=== PATIENT | male | born 1960 | race Caucasian/White ===

== ENCOUNTER 2017-03-13 21:07 | Observation (INO) | payer BC ==
[2017-03-13] MEDS ORDERED: ASPIRIN 81 MG CHEW PO STA (21:36)
[2017-03-13] MEDS ORDERED: NITROGLYCERIN SL TABS 0.4 MG TAB SUBLINGUAL STA (21:36)
--- NOTE | 2017-03-13 21:41 | ED ---
Chest Pain HPI - General Chief Complaint: Chest Pain Stated Complaint: Chest Pain Time Seen by Provider: 03/13/17 21:21 Source: patient, family, RN notes reviewed Mode of arrival: wheelchair Limitations: no limitations - History of Present Illness Initial Comments: This is a 56-year-old male with a history of Lyme disease fibromyalgia a reversal of a Vinh procedure that was done in October also was admitted recently in January for colitis and diverticulitis who presents with complaints of the onset of chest tightness over last 3 days currently is 8 and 9/10 severity is starts in the mid to left chest radiates to the back and the left arm is had fatigue recently. No cough or phlegm production though he is still a smoker. He denies any fevers chills or sweats he states he has reproducible pain which is different than the pain he currently is complaining that. He also has a history of GERD but this is different pain also. MD Complaint: chest pain - Related Data Home Medications Medication Instructions Recorded Confirmed ALPRAZolam [Xanax] 1 mg PO DAILY 03/13/17 03/13/17 Albuterol Sulfate [Proair Hfa] 1 - 2 puff INHALATION RT-Q6H PRN 03/13/17 [id number] 1 tab PO Q4HR PRN 03/13/17 03/13/17 [Excedrin] Olmesartan [Benicar] 10 mg PO DAILY 03/13/17 03/13/17 Allergies Allergy/AdvReac Type Severity Reaction Status Date / Time metronidazole [From Flagyl] Allergy Unknown Verified 03/13/17 21:38 Review of Systems ROS Statement: Those systems with pertinent positive or pertinent negative responses have been documented in the HPI. ROS Other: All systems not noted in ROS Statement are negative. EKG Findings - EKG Results: EKG: interpreted by ERMD, WNL, sinus rhythm, normal axis, normal QRS, normal ST/ T, no acute changes (EKG shows a normal sinus rhythm of 68 appear of 01 34 QRS duration 90 QT/QTC of 380/44 this is a normal-appearing EKG) Past Medical History Past Medical History: Hyperlipidemia, Hypertension History of Any Multi-Drug Resistant Organisms: None Reported Past Surgical History: Back Surgery, Cholecystectomy Additional Past Surgical History / Comment(s): PLATE TO NECK, LEFT SHOULDER, ELBOW AND WRISTS, HANDS, STOMACH SURGERY Past Psychological History: Anxiety Smoking Status: Current every day smoker Past Alcohol Use History: Daily Past Drug Use History: None Reported General Exam - General Exam Comments Initial Comments: This a well-developed well-nourished awake alert oriented x 3 male Limitations: no limitations General appearance: alert, anxious Head exam: Present: atraumatic, normocephalic, normal inspection Eye exam: Present: normal appearance, PERRL, EOMI. Absent: scleral icterus, conjunctival injection, periorbital swelling ENT exam: Present: normal exam, mucous membranes moist Neck exam: Present: normal inspection. Absent: tenderness, meningismus, lymphadenopathy Respiratory exam: Present: normal lung sounds bilaterally, chest wall tenderness. Absent: respiratory distress, wheezes, rales, rhonchi, stridor Cardiovascular Exam: Present: regular rate, normal rhythm, normal heart sounds. Absent: systolic murmur, diastolic murmur, rubs, gallop, clicks GI/Abdominal exam: Present: soft, normal bowel sounds. Absent: distended, tenderness, guarding, rebound, rigid Extremities exam: Present: normal inspection, full ROM, normal capillary refill. Absent: tenderness, pedal edema, joint swelling, calf tenderness Back exam: Present: normal inspection Neurological exam: Present: alert, oriented X3, CN II-XII intact Psychiatric exam: Present: normal affect, normal mood Skin exam: Present: warm, dry, intact, normal color. Absent: rash Course Vital Signs 03/13/17 03/13/17 03/13/17 21:14 21:50 22:03 Temperature 97.5 F L 98.0 F Pulse Rate 73 68 70 Respiratory 16 16 16 Rate Blood Pressure 161/99 170/101 160/105 O2 Sat by Pulse 97 98 97 Oximetry 03/13/17 03/13/17 03/13/17 22:08 22:13 23:18 Temperature 97.2 F L Pulse Rate 74 70 61 Respiratory 16 16 16 Rate Blood Pressure 140/87 136/84 126/84 O2 Sat by Pulse 97 97 97 Oximetry Chest Pain MDM - MDM Evaluation x-ray shows no evidence of acute findings. I did discuss findings with patient family members. Patient be admitted for evaluation by cardiology. I did discuss this with the covering nurse practitioner for Dr. Crawford. Disposition Clinical Impression: Atypical chest pain, Unstable angina pectoris Disposition: ADMITTED IP TO THIS HOSP Condition: Stable
[2017-03-13 21:58] LABS: Basophils # (A) 0.1 k/uL (0-0.2); Basophils % (A) 1 %; CHCM 35.2; Eosinophils # (A) 0.4 k/uL (0-0.7); Eosinophils % (A) 5 %; HCT 48.6 % (39.0-53.0); HGB 16.9 gm/dL (13.0-17.5); Luc # (Auto) 0.23; Luc % (Auto) 3; Lymphocytes # (A) 2.2 k/uL (1.0-4.8); Lymphocytes % (A) 29 %; MCH 33.6 pg (25.0-35.0); MCHC 34.7 g/dL (31.0-37.0); Mean Platelet Volume 7.1; Monocytes # (A) 0.5 k/uL (0-1.0); Monocytes % (A) 7 %; Neutrophils # (A) 4.2 k/uL (1.3-7.7); Neutrophils % (A) 56 %; RBC 5.01 m/uL (4.30-5.90); RDW 11.9 % (11.5-15.5); WBC 7.6 k/uL (3.8-10.6); WBC (Perox) 7.28
[2017-03-13 22:10] LABS: ALT 34 U/L (21-72); AST 27 U/L (17-59); Alkaline Phosphatase 88 U/L (38-126); Blood Urea Nitrogen 17 mg/dL (9-20); Calcium 10.2 mg/dL (8.4-10.2); Carbon Dioxide 27 mmol/L (22-30); Chloride 105 mmol/L (98-107); Glucose 104 mg/dL (74-99); Magnesium 2.1 mg/dL (1.6-2.3); Non-African American GFR(MDRD) >60 (>60 ml/min/1.73 sqM); Potassium 4.2 mmol/L (3.5-5.1); Total Bilirubin 0.5 mg/dL (0.2-1.3); Total Protein 7.3 g/dL (6.3-8.2)
[2017-03-13 22:13] LABS: Anion Gap 8 mmol/L; Sodium 140 mmol/L (137-145)
[2017-03-13 22:15] LABS: Partial Thromboplastin Time 24.8 sec (22.0-30.0); Prothrombin Time 10.1 sec (9.0-12.0)
[2017-03-13 22:19] LABS: Creatine Kinase 82 U/L (55-170)
[2017-03-13 22:34] LABS: Troponin I <0.012 ng/mL (0.000-0.034)
--- NOTE | 2017-03-13 22:42 | XR ---
EXAM: XR Chest, 2 Views CLINICAL HISTORY: Reason: Chest Pain TECHNIQUE: Frontal and lateral views of the chest. COMPARISON: No relevant prior studies available. FINDINGS: Lungs: Unremarkable. No consolidation. Pleural space: No pleural effusion. No pneumothorax. Heart: Unremarkable. No cardiomegaly. Mediastinum: Unremarkable. Bones/joints: Partially imaged lower cervical spine fusion hardware. IMPRESSION: No acute cardiopulmonary disease.
[2017-03-14] MEDS ORDERED: HEPARIN SODIUM,PORCINE 5,000 UNIT/ML 1 ML VIAL IV ONE
[2017-03-14] MEDS ORDERED: HEPARIN SODIUM,PORCINE/D5W PMX 25,000 UNIT in DEXTROSE/WATER 1 500ML.BAG IV SCH
[2017-03-14] MEDS ORDERED: ALBUTEROL NEBULIZED 2.5 MG/3 ML INHALATION PRN (00:02)
[2017-03-14] MEDS: HYDROmorphone 1 MG/ML 1 ML SYRINGE IVP PRN ×7 (00:32→20:55)
[2017-03-14] MEDS: NITROGLYCERIN OINT 1 INCH/GM PACKET TOPICAL SCH ×2 (00:38→06:09)
[2017-03-14 01:12] VITALS: BMI 25.2
[2017-03-14] MEDS: SODIUM CHLORIDE 0.9% 1,000 ML IV SCH (01:28)
[2017-03-14] MEDS ORDERED: HEPARIN SODIUM,PORCINE 5,000 UNIT/ML 1 ML VIAL IV PRN (01:35)
[2017-03-14] MEDS: NITROGLYCERIN SL TABS 0.4 MG TAB SUBLINGUAL PRN ×3 (01:49→02:00)
[2017-03-14] MEDS ORDERED: RX INFO: IV CONTRAST WAS GIVEN 1 EACH MISC MISCELLANE PRN (02:56)
--- NOTE | 2017-03-14 04:39 | CT ---
EXAM: CT Angiography Chest Without and With Intravenous Contrast CT Angiography Abdomen Without and With Intravenous Contrast CLINICAL HISTORY: Reason: CHEST PAIN TECHNIQUE: Axial computed tomographic angiography images of the chest and abdomen without and with intravenous contrast using CT angiography protocol. Coronal and sagittal reformats were obtained. CTDI is 55.50 mGy and DLP is 820.40 MGy-cm This CT exam was performed using one or more of the following dose reduction techniques: automated exposure control, adjustment of the mA and/or kV according to patient size, and/or use of iterative reconstruction technique. MIP reconstructed images were created and reviewed. COMPARISON: No relevant prior studies available. FINDINGS: VASCULATURE: Aorta: No acute findings. No aortic aneurysm. No dissection. Pulmonary arteries: Unremarkable as visualized. No pulmonary embolism is identified. Great vessels of aortic arch: No acute findings. No dissection. No occlusion or significant stenosis. Celiac trunk and mesenteric arteries: No acute findings. Mild atherosclerotic stenosis at the origin of the SMA. Renal arteries: No acute findings. No occlusion or significant stenosis. CHEST: Lungs: Unremarkable. No mass. No consolidation. Pleural space: Unremarkable. No significant effusion. No pneumothorax. Heart: Unremarkable. No cardiomegaly. No significant pericardial effusion. ABDOMEN: Liver: Unremarkable. No mass. Gallbladder and bile ducts: Gallbladder is surgically absent. No ductal dilation. Pancreas: Unremarkable. No ductal dilation. No mass. Spleen: Unremarkable. No splenomegaly. Adrenals: Unremarkable. No mass. Kidneys and ureters: No obstructing stones. No hydronephrosis. No solid mass. Stomach and bowel: Unremarkable. No obstruction. No mucosal thickening. Intraperitoneal space: Unremarkable. No significant fluid collection. No free air. CHEST and ABDOMEN: Bones/joints: No acute fracture. Lymph nodes: Unremarkable. No enlarged lymph nodes. IMPRESSION: No acute findings. No aortic aneurysm or dissection.
[2017-03-14 05:05] LABS: Creatine Kinase 58 U/L (55-170)
[2017-03-14 05:18] LABS: Creatine Kinase MB 1.7 ng/mL (0.0-2.4); Troponin I <0.012 ng/mL (0.000-0.034)
--- NOTE | 2017-03-14 08:29 | P.CRDCN ---
History of Present Illness Consult date: 03/14/17 Requesting physician: Melissa Crawford Consult reason: chest pain Chief complaint: Chest pain History of present illness: This is a 56-year-old gentleman with history of hypertension, hyperlipidemia, nicotine dependence, family history of premature coronary artery disease, GERD, prior Vinh procedure with reversal approximately 4-5 months ago, he presents to the hospital with symptoms of chest pressure which she describes as a heaviness that radiates across his chest and down his left arm. He also feels some discomfort in the scapular area. He states that the symptoms started 3 days ago and have persisted since then. He does get mildly flushed with the symptoms mild shortness of breath. Patient states that the pain is much different than what he usually gets from his acid reflux. He was given sublingual nitroglycerin in the emergency room with no relief of symptoms. The pressure on arrival to the emergency room 161/99, pressure this morning 120/70 with a heart rate in the 70s. EKG shows a normal sinus rhythm with no acute changes. VC is normal. Troponins negative 2. Magnesium level 2.1, potassium 4.2. X- ray does not reveal any acute cardiopulmonary process. CTA of the chest and abdomen do not reveal any acute findings, no aortic aneurysm or dissection. Adding to the patient, he has recently moved to this area from [place], he has had at least 4 heart cath in the past which according to him have been reported to be normal. Past Medical History Past Medical History: Asthma, COPD, Fibromyalgia, GERD/Reflux, Hyperlipidemia, Hypertension, Osteoarthritis (OA), Pneumonia Additional Past Medical History / Comment(s): lyme disease History of Any Multi-Drug Resistant Organisms: None Reported Past Surgical History: Back Surgery, Cholecystectomy Additional Past Surgical History / Comment(s): PLATE TO NECK, LEFT SHOULDER, ELBOW AND WRISTS, HANDS, STOMACH SURGERY Past Anesthesia/Blood Transfusion Reactions: No Reported Reaction Past Psychological History: Anxiety Smoking Status: Current every day smoker Past Alcohol Use History: Daily Past Drug Use History: None Reported - Past Family History Mother Family Medical History: Osteoarthritis (OA) Father Family Medical History: Coronary Artery Disease (CAD), Diabetes Mellitus, Hypertension Son(s) Family Medical History: No Reported History Medications and Allergies Home Medications Medication Instructions Recorded Confirmed Type ALPRAZolam [Xanax] 1 mg PO DAILY 03/13/17 03/13/17 History Albuterol Sulfate [Proair Hfa] 1 - 2 puff INHALATION RT-Q6H PRN 03/13/17 History [id number] 1 tab PO Q4HR PRN 03/13/17 03/13/17 History [Excedrin] Losartan Potassium [Losartan 25 mg PO DAILY 03/14/17 03/14/17 History Potassium] Allergies Allergy/AdvReac Type Severity Reaction Status Date / Time metronidazole [From Flagyl] Allergy Unknown Verified 03/13/17 21:38 Physical Exam Vitals: Vital Signs Temp Pulse Pulse Resp BP BP Pulse Ox 03/14/17 04:00 74 16 120/72 96 03/14/17 01:00 96.8 F L 72 16 145/94 96 03/14/17 00:41 77 16 160/108 98 Intake and Output 03/13/17 03/14/17 03/14/17 22:59 06:59 14:59 Intake Total 60 Balance 60 Intake: IV 60 Sodium Chloride 0.9% 1, 60 000 ml @ 20 mls/hr IV . Q24H [facility] Rx#:[id number] Other: Weight 79.6 kg PHYSICAL EXAMINATION: HEENT: Head is atraumatic, normocephalic. Pupils equal, round. Neck is supple. There is no elevated jugular venous pressure. HEART EXAMINATION: Heart S1, S2 normal. No murmur or gallop heard. CHEST EXAMINATION: Lungs are clear to auscultation and precussion. No chest wall tenderness is noted on palpation or with deep breathing. ABDOMEN: Soft, nontender. Bowel sounds are heard. No organomegaly noted. EXTREMITIES: 2+ peripheral pulses with no evidence of peripheral edema and no calf tenderness noted. NEUROLOGIC patient is awake, alert and oriented -3. . Results 03/13/17 21:40 03/13/17 21:40 Cardiac Enzymes 03/14/17 Range/Units 04:09 CK-MB (CK-2) 1.7 (0.0-2.4) ng/mL Troponin I <0.012 (0.000-0.034) ng/mL Coagulation 03/14/17 Range/Units 06:59 APTT 40.1 H (22.0-30.0) sec Current Medications Generic Name Dose Route Start Last Admin Trade Name Freq PRN Reason Stop Dose Admin Hydrocodone Bitart/Acetaminophen 1 each 03/14/17 06:49 [place] 5-325 PO Q4HR PRN MODERATE Pain Albuterol Sulfate 2.5 mg 03/14/17 00:02 Ventolin Nebulized INHALATION RT-Q6H PRN Shortness Of Breath Alprazolam 1 mg 03/14/17 09:00 Xanax PO DAILY [facility] Aspirin 325 mg 03/15/17 09:00 Aspirin PO DAILY [facility] Heparin Sodium (Porcine) 0 unit 03/14/17 01:35 Heparin IV PER PROTOCOL PRN Low PTT Protocol Hydromorphone HCl 1 mg 03/14/17 00:03 03/14/17 06:09 Dilaudid IVP 1 mg Q3HR PRN Administration SEVERE Pain Heparin Sodium/Dextrose 25,000 500 mls @ 19.15 mls/hr 03/14/17 00:00 00:32 unit/ IV Solution IV 12 units/kg/hr .Q24H JESSICA 19.15 mls/hr Protocol Administration 12 UNITS/KG/HR Sodium Chloride 1,000 mls @ 20 mls/hr 03/14/17 00:00 03/14/17 01:28 Saline 0.9% IV 20 mls/hr .Q24H JESSICA Administration Losartan Potassium 50 mg 03/14/17 09:00 Cozaar PO DAILY [facility] Miscellaneous Information 1 each 03/14/17 02:56 Rx Info: Iv Contrast Was Given MISCELLANE 03/16/17 02:57 DAILY PRN Per Protocol Nicotine 1 patch 03/14/17 09:00 Habitrol 14mg/24hr Patch TRANSDERM DAILY [facility] Nitroglycerin 1 inch 03/14/17 00:00 03/14/17 06:09 Nitro-Bid Oint TOPICAL 1 inch Q6HR JESSICA Administration Nitroglycerin 0.4 mg 03/14/17 00:00 03/14/17 02:00 Nitrostat SUBLINGUAL 0.4 mg Q5M PRN Administration Chest Pain Intake and Output 03/13/17 03/14/17 03/14/17 22:59 06:59 14:59 Intake Total 60 Balance 60 Intake: IV 60 Sodium Chloride 0.9% 1, 60 000 ml @ 20 mls/hr IV . Q24H [facility] Rx#:[id number] Other: Weight 79.6 kg EKG Interpretations (text) EKG shows normal sinus rhythm with no acute changes. Assessment and Plan Plan: Assessment and plan #1 chest pain, atypical for acute coronary syndrome. Troponins negative 2. EKG shows normal sinus rhythm with no acute changes. #2 accelerated hypertension #3 history of hypertension #4 hyperlipidemia #5 nicotine dependence #6 family history of premature coronary artery disease #7 history of GERD #8 history of a Vinh procedure with reversal Plan We will obtain an echocardiogram with Doppler study. We will also schedule the patient to undergo regular stress test today. If the echo and stress test are normal, patient may be able to be discharged from cardiology's perspective. We will discontinue the patient's Nitropaste and IV heparin. Further recommendations to follow. DNP note has been reviewed, I agree with a documented findings and plan of care. Patient was seen and examined.
[2017-03-14] MEDS: LOSARTAN 50 MG TAB PO SCH (09:20)
[2017-03-14 09:29] LABS: Creatine Kinase 55 U/L (55-170)
[2017-03-14 09:40] LABS: Troponin I <0.012 ng/mL (0.000-0.034)
[2017-03-14] MEDS: HYDROcodone/APAP 5-325MG 1 EACH TAB PO PRN (10:50)
[2017-03-14] MEDS: ALPRAZolam 0.5 MG TAB PO SCH (10:51)
[2017-03-14] MEDS: NICOTINE 14MG/24HR PATCH TRANSDERM SCH (10:51)
--- NOTE | 2017-03-14 11:08 | ECHOF ---
Referral Reason:Chest pain MEASUREMENTS -------- HEIGHT: 177.8 cm WEIGHT: 79.4 kg BP: 120/72 RVIDd: 3.2 cm (< 3.3) IVSd: 1.2 cm (0.6 - 1.1) LVIDd: 4.5 cm (3.9 - 5.3) LVPWd: 1.0 cm (0.6 - 1.1) IVSs: 1.7 cm LVIDs: 2.9 cm LVPWs: 1.6 cm LA Diam: 3.7 cm (2.7 - 3.8) LAESV Index (A-L): 25.73 ml/m Ao Diam: 3.7 cm (2.0 - 3.7) AV Cusp: 2.5 cm (1.5 - 2.6) MV EXCURSION: 20.347 mm (> 18.000) MV EF SLOPE: 137 mm/s (70 - 150) EPSS: 0.3 cm MV E Jordan: 0.76 m/s MV DecT: 216 ms MV A Jordan: 0.62 m/s MV E/A Ratio: 1.24 AR PHT: 1657 ms RAP: 5.00 mmHg RVSP: 27.77 mmHg FINDINGS -------- Sinus rhythm. This was a technically good study. The left ventricular size is normal. There is borderline concentric left ventricular hypertrophy. Overall left ventricular systolic function is normal with, an EF between 60 - 65 %. The right ventricle is normal in size and function. Normal LA size by volume 22+/-6 ml/m2. The right atrium is normal in size. The aortic valve is trileaflet and appears structurally normal. There is mild aortic regurgitation. The mitral valve is normal. Mild tricuspid regurgitation present. Right ventricular systolic pressure is normal at < 35 mmHg. Trace/mild (physiologic) pulmonic regurgitation. The aortic root, ascending aorta and aortic arch are normal. Normal inferior vena cava with normal inspiratory collapse consistent with estimated right atrial pressure of 5 mmHg. The pericardium is normal. CONCLUSIONS -------- 1. Sinus rhythm. 2. There is mild aortic regurgitation. 3. The mitral valve is normal. 4. Mild tricuspid regurgitation present. 5. Right ventricular systolic pressure is normal at < 35 mmHg. 6. Trace/mild (physiologic) pulmonic regurgitation. 7. The aortic root, ascending aorta and aortic arch are normal. 8. Normal inferior vena cava with normal inspiratory collapse consistent with estimated right atrial pressure of 5 mmHg. 9. The pericardium is normal. 10. This was a technically good study. 11. The left ventricular size is normal. 12. There is borderline concentric left ventricular hypertrophy. 13. Overall left ventricular systolic function is normal with, an EF between 60 - 65 %. 14. The right ventricle is normal in size and function. 15. Normal LA size by volume 22+/-6 ml/m2. 16. The right atrium is normal in size. 17. The aortic valve is trileaflet and appears structurally normal. CHAIN HOOKER: Kathy Hernandez RDCS
--- NOTE | 2017-03-14 11:25 | EST ---
DATE OF SERVICE: 03/14/2017 AGE: 56Y SEX: M HT: 70" WT: 176 lbs. Protocol Bonilla: X Other: Stress Stage: 3 Dur. of Exercise: 10:07 *Heart Rate Blood Pressure *Rest: 58 Rest: 129/88 * *Max. Achieved: 131 Maximum BP: 142/85 85% PMHR: 139 100% PMHR: 163 *METS: 11.3 INDICATIONS: - MEDICATIONS: - Baseline EKG revealed normal sinus rhythm without significant ST-T changes. Patient walked on the standard Bonilla protocol for 10 minutes 7 seconds, achieved a maximal heart rate of 131 beats per minute, which is less than 85% of predicted maximal. He developed fatigue and shortness of breath, but did not achieve more than 85% of predicted of maximum. At the above-mentioned stress level, patient did not have any angina but there was a 0.[address] segment depression raising the possibility of ischemia without subjective symptoms of angina. FINAL IMPRESSION: 1. By EKG criteria, this is an inconclusive stress test because of inadequate chronotropic response but there were borderline EKG changes raising the possibility of ischemia without subjective symptoms of angina. Patient walked for over 10 minutes. 2. If ischemia is strongly suspected, we should consider a pharmacological stress test because patient was unable to achieve a heart rate response beyond 80% of his predicted maximum.
[2017-03-14] MEDS ORDERED: ONDANSETRON 4 MG/2 ML VIAL IVP STA (11:51)
[2017-03-14] MEDS ORDERED: ASPIRIN-ACET-CAFF 250-250-65MG 1 EACH TAB PO PRN (15:53)
[2017-03-14] MEDS ORDERED: SODIUM CHLORIDE 0.9% 1,000 ML in EMPTY BAG 1 BAG IV ONE (16:07)
[2017-03-14] MEDS ORDERED: NITROGLYCERIN SL TABS 0.4 MG TAB SUBLINGUAL PRN (16:07)
[2017-03-14] MEDS ORDERED: ALPRAZolam 0.25 MG TAB PO PRN (16:07)
[2017-03-14 16:22] LABS: Amylase 57 U/L (30-110)
[2017-03-14 17:07] LABS: C Reactive Protein <5.0 mg/L (<10.0)
[2017-03-14 17:37] LABS: Appearance,Urine Clear (Clear); Bilirubin,Urine Negative (Negative); Glucose,Urine (UA) Negative (Negative); Ketones,Urine Negative (Negative); Leukocyte Esterase,Urine Negative (Negative); Nitrite,Urine Negative (Negative); PH, Urine 6.5 (5.0-8.0); Protein,Urine Negative (Negative); Specific Gravity,Urine 1.002 (1.001-1.035); UA Billing (MACRO vs. MICRO) CHEM; Urobilinogen,Urine <2.0 mg/dL (<2.0)
[2017-03-14] MEDS: PANTOPRAZOLE 40 MG/10 ML VIAL IVP SCH (20:56)
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
[2017-03-14] MEDS: ALPRAZolam 0.5 MG TAB PO PRN (22:19)
[2017-03-15] MEDS: SODIUM CHLORIDE 0.9% 1,000 ML IV SCH ×2 (00:21→23:35)
[2017-03-15] MEDS: HYDROmorphone 1 MG/ML 1 ML SYRINGE IVP PRN ×7 (00:28→21:39)
[2017-03-15] MEDS: ALPRAZolam 0.5 MG TAB PO SCH (06:24)
[2017-03-15] MEDS: LOSARTAN 50 MG TAB PO SCH (06:24)
[2017-03-15] MEDS: ASPIRIN 325 MG TAB PO SCH (06:24)
[2017-03-15 06:43] LABS: Basophils # (A) 0.1 k/uL (0-0.2); Basophils % (A) 1 %; CH 33.9; CHCM 33.9; Eosinophils # (A) 0.3 k/uL (0-0.7); Eosinophils % (A) 3 %; HDW 2.35; HGB 15.6 gm/dL (13.0-17.5); Luc # (Auto) 0.26; Luc % (Auto) 2; Lymphocytes # (A) 2.4 k/uL (1.0-4.8); Lymphocytes % (A) 22 %; MCH 32.7 pg (25.0-35.0); MCHC 32.6 g/dL (31.0-37.0); MCV 100.4 fL (80.0-100.0); Monocytes # (A) 0.7 k/uL (0-1.0); Monocytes % (A) 6 %; Neutrophils # (A) 7.5 k/uL (1.3-7.7); Neutrophils % (A) 67 %; RBC 4.79 m/uL (4.30-5.90); RDW 12.1 % (11.5-15.5); WBC 11.2 k/uL (3.8-10.6); WBC (Perox) 11.05
[2017-03-15 06:49] LABS: Anion Gap 8 mmol/L; Blood Urea Nitrogen 11 mg/dL (9-20); Calcium 9.7 mg/dL (8.4-10.2); Carbon Dioxide 29 mmol/L (22-30); Chloride 105 mmol/L (98-107); Cholesterol 226 mg/dL (<200); Glucose 106 mg/dL (74-99); HDL Cholesterol 58 mg/dL (40-60); Non-African American GFR(MDRD) >60 (>60 ml/min/1.73 sqM); Potassium 4.4 mmol/L (3.5-5.1); Sodium 142 mmol/L (137-145); Triglycerides 347 mg/dL (<150)
[2017-03-15] MEDS: NICOTINE 14MG/24HR PATCH TRANSDERM SCH (08:21)
[2017-03-15] MEDS: PANTOPRAZOLE 40 MG/10 ML VIAL IVP SCH (08:21)
[2017-03-15] MEDS: MULTIVITAMINS, THERA 1 EACH TAB PO SCH (11:25)
[2017-03-15] MEDS: PANTOPRAZOLE 40 MG TABLET PO SCH (17:21)
--- NOTE | 2017-03-15 17:55 | PN ---
DATE OF SERVICE: 03/15/2017 This 56-year-old gentleman, admitted with chest pain, is being closely monitored. Cardiac catheterization and stenting is scheduled by Cardiology. No fever. No cough. On exam, alert and oriented x3. Pulse 67, blood pressure 149/86, respiratory rate 16, temperature 97 degrees. Pulse ox 97% on room air. HEENT: Conjunctivae normal. NECK: No jugular venous distention. CARDIOVASCULAR SYSTEM: S1, S2 muffled. RESPIRATORY SYSTEM: Breath sounds diminished at the bases. No crackles. ABDOMEN: Soft, nontender. No mass palpable. LEGS: No edema. No swelling. NERVOUS SYSTEM: Higher functions as mentioned earlier. Moves all 4 limbs. No focal motor or sensory deficit. LYMPHATICS: No lymph node palpable in neck, axillae or groin. SKIN: No ulcer, rash, bleeding. LABS: WBC 11.2. Triglycerides 347. Cholesterol 226. ASSESSMENT: 1. Chest pain for evaluation. Rule out coronary artery disease. 2. Hyperlipidemia. 3. Hearing deficit on the left side. 4. Increased random blood sugar. 5. History of chronic intermittent asthma. 6. History of chronic obstructive pulmonary disease. 7. History of fibromyalgia. 8. History of gastroesophageal reflux disease. 9. Hypertension, essential. 10. History of hyperlipidemia. 11. History of degenerative joint disease. 12. History of pneumonia. 13. History of chronic lung disease. 14. History of back surgery. 15. Cholecystectomy. 16. Anxiety not otherwise specified. 17. History of nicotine dependence. 18. FULL CODE. RECOMMENDATIONS AND DISCUSSION: In this 56-year-old gentleman who presented with multiple complex medical issues, we will monitor the patient closely, continue the current medication, continue with symptomatic treatment. Otherwise, cardiac catheterization. Continue the rest of the medications. I also recommend a small dose of Lipitor. Further recommendations to follow.
--- NOTE | 2017-03-15 18:56 | PN ---
DATE OF SERVICE: 03/15/2017 This 56-year-old gentleman admitted with chest pain is being closely monitored at this time. Cardiology is planning cardiac catheterization. No fever. No cough. On exam, alert and oriented x3. Pulse 69, blood pressure 143/86, respirations 16, temperature 97 degrees, pulse ox 94% on room air. HEENT: Conjunctivae normal. NECK: No jugular venous distention. CARDIOVASCULAR: S1 and S2. RESPIRATORY: Breath sounds diminished at the bases. No rhonchi, no crackles. ABDOMEN: Soft, nontender. LEGS: No edema, no swelling. NERVOUS SYSTEM: No focal deficits. LABS: WBC 11.2, MCV 100.4, triglycerides 347, cholesterol is 226. ASSESSMENT: 1. Chest pain rule out coronary artery disease. 2. Hearing deficit on the left side. 3. Hypertriglyceridemia. 4. Hyperlipidemia. 5. Increased random blood sugar. 6. Chronic intermittent asthma. 7. History of chronic obstructive pulmonary disease. 8. History of fibromyalgia. 9. History of gastroesophageal reflux disease. 10. Hypertension, essential. 11. History of hyperlipidemia. 12. History of degenerative joint disease. 13. History of pneumonia. 14. History of chronic Lyme disease. 15. History of back surgery. 16. History of cholecystectomy. 17. History of anxiety, not otherwise specified. 18. History of nicotine dependence. 19. FULL CODE. RECOMMENDATIONS AND DISCUSSION: I recommend to continue the current medications, continue monitoring and symptomatic treatment. Otherwise cardiac catheterization and add small dose of Lipitor and continue to monitor. Guarded prognosis because of multiple complex medical issues. Further recommendations to follow.
[2017-03-15] MEDS ORDERED: ATORVASTATIN 10 MG TAB PO SCH ×3 (21:00)
[2017-03-15] MEDS: ALPRAZolam 0.5 MG TAB PO PRN (21:38)
[2017-03-15] MEDS: HYDROcodone/APAP 5-325MG 1 EACH TAB PO PRN (23:32)
[2017-03-16] MEDS: ASPIRIN 325 MG TAB PO SCH (06:03)
[2017-03-16] MEDS: LOSARTAN 50 MG TAB PO SCH (06:04)
[2017-03-16] MEDS: NICOTINE 14MG/24HR PATCH TRANSDERM SCH (06:04)
[2017-03-16] MEDS: ALPRAZolam 0.5 MG TAB PO SCH (06:04)
[2017-03-16] MEDS: PANTOPRAZOLE 40 MG TABLET PO SCH (06:04)
[2017-03-16] MEDS: HYDROmorphone 1 MG/ML 1 ML SYRINGE IVP PRN ×3 (06:11→13:08)
[2017-03-16 07:57] VITALS: RESP 16
[2017-03-16] MEDS ORDERED: LIDOCAINE 2% INJ 20 MG/ML (20 ML MDV) ONE (08:40)
[2017-03-16] MEDS ORDERED: IV FLUID CONTINUATION 1,000 ML IV ONE (08:45)
[2017-03-16] MEDS ORDERED: VERAPAMIL 2.5 MG/ML 2 ML AMP ONE (08:54)
[2017-03-16] MEDS ORDERED: MIDAZOLAM 2 MG/2 ML VIAL ONE (09:08)
[2017-03-16] MEDS ORDERED: MIDAZOLAM 2 MG/2 ML VIAL IV ONE (09:23)
[2017-03-16] MEDS ORDERED: LIDOCAINE 2% INJ 20 MG/ML SQ ONE (09:24)
[2017-03-16] MEDS ORDERED: VERAPAMIL SYRINGE (5 MG/10 ML) INTRAARTER ONE ×2 (09:25→09:38)
[2017-03-16] MEDS ORDERED: HEPARIN SODIUM 1,000 UNIT/ML VIAL ONE (09:26)
[2017-03-16] MEDS ORDERED: IOHEXOL 350 MG/ML 125ML BOTTLE INJ ONE (09:39)
[2017-03-16] MEDS ORDERED: RX INFO: IV CONTRAST WAS GIVEN 1 EACH MISC MISCELLANE PRN (09:44)
[2017-03-16] MEDS ORDERED: SODIUM CHLORIDE 0.9% 1,000 ML IV SCH (09:45)
[2017-03-16 11:02] LABS: Basophils # (A) 0.1 k/uL (0-0.2); Basophils % (A) 1 %; CH 33.5; CHCM 33.6; Eosinophils # (A) 0.4 k/uL (0-0.7); Eosinophils % (A) 6 %; HCT 43.9 % (39.0-53.0); HDW 2.29; HGB 14.5 gm/dL (13.0-17.5); Luc # (Auto) 0.14; Luc % (Auto) 2; Lymphocytes # (A) 1.9 k/uL (1.0-4.8); Lymphocytes % (A) 30 %; Mean Platelet Volume 7.1; Monocytes # (A) 0.4 k/uL (0-1.0); Monocytes % (A) 6 %; Neutrophils # (A) 3.4 k/uL (1.3-7.7); Neutrophils % (A) 54 %; RBC 4.39 m/uL (4.30-5.90); RDW 12.2 % (11.5-15.5); WBC 6.3 k/uL (3.8-10.6)
[2017-03-16 11:22] LABS: Anion Gap 7 mmol/L; Blood Urea Nitrogen 10 mg/dL (9-20); Carbon Dioxide 25 mmol/L (22-30); Chloride 108 mmol/L (98-107); Glucose 94 mg/dL (74-99); Non-African American GFR(MDRD) >60 (>60 ml/min/1.73 sqM); Potassium 4.3 mmol/L (3.5-5.1); Sodium 140 mmol/L (137-145)
[2017-03-16] MEDS: MULTIVITAMINS, THERA 1 EACH TAB PO SCH (11:28)
[2017-03-16] MEDS: HYDROcodone/APAP 5-325MG 1 EACH TAB PO PRN (14:16)
[2017-03-16 15:09] VITALS: BP 135/83; PULSE 67; TEMP 96.8
--- NOTE | 2017-03-16 18:08 | CC ---
DATE OF SERVICE: 03/16/2017 PERFORMING PHYSICIAN: Wilber Bobby, [employer]. PROCEDURE PERFORMED: 1. Selective right and left coronary angiogram. 2. Left heart catheterization. 3. Left ventriculography. INDICATION: This is a pleasant 56-year-old gentleman who was admitted to the hospital with chest discomfort and underwent myocardial perfusion imaging stress test. The decision was made toward heart catheterization to rule out any severe underlying CAD. APPROACH: Right radial artery. COMPLICATIONS: None. LEVEL OF SEDATION: Moderate with a sedation length of 17 minutes. PROCEDURE DESCRIPTION: After obtaining informed consent, the patient was brought to the cardiac cathode ray tube assembler. Right radial artery was cannulated using micropuncture technique. The micropuncture wire passed easily, then I placed 6 [place] sheath in the right radial artery. Subsequently I gave the patient 2 mg of verapamil IA and 3000 units of heparin IV. After that, I did selective right and left coronary angiogram using JR4 and JL 3.5 catheters. Then I did left heart catheterization and LV gram using a 6 [place] pigtail catheter. The procedure was completed without any complication. SELECTIVE CORONARY ANGIOGRAM: 1. The right coronary artery is a large-caliber vessel. It is a dominant vessel and it is a tortuous vessel. It has mild disease only. It bifurcates into PDA and PLV branches; both are angiographically normal. 2. The left main is angiographically normal. It bifurcates into the left circumflex and left anterior descending artery. 3. The left circumflex is a large-caliber vessel and it is a nondominant vessel. It appeared to have mild disease only in the proximal portion. The mid and distal portions are normal. 4. Left anterior descending artery: The proximal LAD appeared to be angiographically normal and gives rises into a large diagonal branch, which seems to have mild disease only. The mid LAD has disease, appeared to be in the range of 20% to 30%. The LAD distally is angiographically normal. HEMODYNAMICS: The left ventricular end-diastolic pressure was about 12 mmHg and no gradient was identified across the aortic valve. Left ventriculography was performed in the SABA projection and using a power injection. The left ventricular systolic function is normal with EF of 55% to 60%. CONCLUSION: 1. Mild nonobstructive coronary artery disease. 2. Normal left ventricular end-diastolic pressure. 3. Normal left ventricular systolic function.
--- NOTE | 2017-03-17 10:06 | DS ---
DATE OF ADMISSION: 03/14/2017 DATE OF DISCHARGE: 03/16/2017 DATE OF SERVICE: 03/16/2017 FINAL DIAGNOSES: 1. Chest pain, possibly musculoskeletal, myocardial infarction ruled out. 2. Hearing deficit on the left side. 3. Status post cardiac catheterization with no significant coronary artery disease, final report pending. 4. Hepatitis C. 5. Hyperlipidemia. 6. Increased random blood sugar. 7. Chronic intermittent asthma. 8. History of chronic obstructive pulmonary disease. 9. History of fibromyalgia. 10. History of gastroesophageal reflux disease. 11. Hypertension, essential. 12. History of hyperlipidemia. 13. History of degenerative joint disease. 14. History of pneumonia. 15. History of chronic Lyme disease. 16. History of back surgery. 17. History of cholecystectomy. 18. Anxiety, not otherwise specified. 19. History of nicotine dependence. 20. FULL CODE. DISCHARGE DISPOSITION: The patient will be discharged in a stable condition with guarded prognosis. HISTORY OF PRESENT ILLNESS: This is a 56-year-old gentleman with a past medical history of multiple medical problems was admitted with chest pain, myocardial infarction ruled out. Patient had cardiac catheterization which did not show any acute coronary abnormality. The patient was treated symptomatically. On exam, vitals are stable. CARDIOVASCULAR SYSTEM: S1, S2, muffled. ABDOMEN: Soft. NERVOUS SYSTEM: No focal deficits. Patient also had a thoracic aortic CT which showed no acute findings and no acute aneurysms. Patient is being discharged. DISCHARGE ADVICE: 1. Diet is cardiac. 2. Activity limited until followup. 3. Follow up with Dr. Shahid in 2 to 3 days. 4. Follow up with Dr. Bobby. 5. Follow up with Dr. Will for neurology work-up. 6. Follow up with Dr. Marte for pain management. 7. Follow up with the neuropsychiatrist. The following medications recommended from the medical standpoint: 1. Xanax 1 mg p.o. daily. 2. ProAir HFA 1 to 2 puffs q.6 p.r.n. 3. Yuxwdfi-bdosbakoykdmg-ulngenxu q.4 p.r.n. 4. Lipitor 10 mg q.h.s. 5. [place] 5 mg q.6 p.r.n. 6. Losartan 25 mg p.o. daily. MTDD
== END 2017-03-16 15:51 | disposition home or self-care (01) ==
LOC: EC 21:07 → 6SEL 03-14 00:03
PROVIDERS: ADMIT Internal Medicine; ATTEND Internal Medicine
DX: R07.89 Other chest pain (principal); I10 Essential (primary) hypertension; E78.5 Hyperlipidemia, unspecified; F17.200 Nicotine dependence, unspecified, uncomplicated; R73.9 Hyperglycemia, unspecified; I25.10 Atherosclerotic heart disease of native coronary artery without angina pectoris; H91.92 Unspecified hearing loss, left ear; Z82.49 Family history of ischemic heart disease and other diseases of the circulatory system; M79.7 Fibromyalgia; K21.9 Gastro-esophageal reflux disease without esophagitis; J44.9 Chronic obstructive pulmonary disease, unspecified; J45.20 Mild intermittent asthma, uncomplicated; Z79.899 Other long term (current) drug therapy; Z88.1 Allergy status to other antibiotic agents; F41.9 Anxiety disorder, unspecified; Z90.49 Acquired absence of other specified parts of digestive tract; Z83.3 Family history of diabetes mellitus; A69.20 Lyme disease, unspecified; Z87.01 Personal history of pneumonia (recurrent); E78.1 Pure hyperglyceridemia; B19.20 Unspecified viral hepatitis C without hepatic coma; Z86.19 Personal history of other infectious and parasitic diseases
CPT/HCPCS: 99152; 96376 ×4; 96361 ×2; 96365; 96366; 96375; 99285; 36415; 94640; 94760; 93005; 93017; 93306; 93458; 85379; 83880; 80061; 80053; 80048 ×2; 85652; 84443; 82150; 82550 ×2; 82553 ×2; 83690; 83735; 84484 ×2; 85025 ×3; 85610; 85730 ×2; 86140; 81003; 80306; 71020; 75635; 71275; G0378 ×3; C1894; S4990 ×3; J2001; J2250; J1644 ×3; Q9967 ×2; J2405; J1170 ×3; C9113 ×2

== ENCOUNTER 2017-04-19 00:58 | Emergency (ER) | payer BC ==
[2017-04-19 01:15] VITALS: TEMP 97.4
--- NOTE | 2017-04-19 02:20 | ED ---
General Adult HPI - General Chief complaint: Shortness of Breath Stated complaint: [place] Time Seen by Provider: 04/19/17 01:04 Source: patient, RN notes reviewed, old records reviewed Mode of arrival: EMS Limitations: no limitations - History of Present Illness Initial comments: Physical 56-year-old male presenting to emergency Department via EMS chief complaint of a history of difficulty in breathing. Patient reports that he's had intermittent difficulty in breathing multiple times over the past few years. He reports he uses an inhaler. Patient reports that he has were sitting on the couch when this occurred. Patient reports that after he uses regularly. He was feeling fine and sitting on a couch watching TV. Patient reports that his became nervous and then called the EMS. Patient states that he did not want to come to the emergency department but came to appease his . He denies any new chest pain or difficulty breathing at this time. Patient states that he does not understand why he came to the emergency department. Patient reports he's had a full workup including a cardiac cath a few weeks ago which was completed and benign. Patient reports that he's been feeling well since then. Patient denies any recent fever or chills, cough or significant wheezing. He does state he has a history of ALLERGIES. - Related Data Home Medications Medication Instructions Recorded Confirmed ALPRAZolam [Xanax] 1 mg PO DAILY 03/13/17 03/13/17 Albuterol Sulfate [Proair Hfa] 1 - 2 puff INHALATION RT-Q6H PRN 03/13/17 Wranqep-Ghnn-Caop [id number] 1 tab PO Q4HR PRN 03/13/17 03/13/17 [Excedrin] Losartan Potassium [Losartan 25 mg PO DAILY 03/14/17 03/14/17 Potassium] Previous Rx's Medication Instructions Recorded Atorvastatin Calcium [Lipitor] 10 mg PO HS #30 tab 03/16/17 HYDROcodone/APAP 5-325MG [[place] 1 tab PO Q6HR PRN #20 tab 03/16/17 5-325] Allergies Allergy/AdvReac Type Severity Reaction Status Date / Time metronidazole [From Flagyl] Allergy Unknown Verified 03/13/17 21:38 Review of Systems ROS Statement: Those systems with pertinent positive or pertinent negative responses have been documented in the HPI. ROS Other: All systems not noted in ROS Statement are negative. Past Medical History Past Medical History: Asthma, COPD, Fibromyalgia, GERD/Reflux, Hyperlipidemia, Hypertension, Osteoarthritis (OA), Pneumonia Additional Past Medical History / Comment(s): lyme disease History of Any Multi-Drug Resistant Organisms: None Reported Past Surgical History: Back Surgery, Cholecystectomy Additional Past Surgical History / Comment(s): PLATE TO NECK, LEFT SHOULDER, ELBOW AND WRISTS, HANDS, STOMACH SURGERY Past Anesthesia/Blood Transfusion Reactions: No Reported Reaction Past Psychological History: Anxiety Smoking Status: Current every day smoker Past Alcohol Use History: Daily Past Drug Use History: None Reported - Past Family History Mother Family Medical History: Osteoarthritis (OA) Father Family Medical History: Coronary Artery Disease (CAD), Diabetes Mellitus, Hypertension Son(s) Family Medical History: No Reported History General Exam - General Exam Comments Initial Comments: 56-year-old male. No acute distress. General: Well appearing, well nourished, in no distress. Oriented x 3, normal mood and affect . Ambulating without difficulty. Skin: Good turgor, no rash, unusual bruising or prominent lesions Hair: Normal texture and distribution. HEENT: Head: Normocephalic, atraumatic, no visible or palpable masses, depressions, or scaring. Eyes: Visual acuity intact, conjunctiva clear, sclera non-icteric, EOM intact, PERRL. Ears: EACs clear, TMs translucent & cone of light visualized. hearing intact. Nose: No external lesions, mucosa non-inflamed, septum and turbinates normal Mouth: Mucous membranes moist, no mucosal lesions. Teeth/Gums: No obvious caries or periodontal disease. No gingival inflammation or significant resorption. Pharynx: Mucosa non-inflamed, no tonsillar hypertrophy or exudate Neck: Supple, without lesions, bruits, or adenopathy, thyroid non-enlarged and non-tender Heart: No cardiomegaly or thrills; regular rate and rhythm, no murmur or gallop Lungs: Clear to auscultation and percussion Abdomen: Bowel sounds normal, no tenderness, organomegaly, masses, or hernia Back: Spine normal without deformity or tenderness, no CVA tenderness Extremities: No amputations or deformities, cyanosis, edema or varicosities, peripheral pulses intact Musculoskeletal: Normal gait and station. No misalignment, asymmetry, crepitation, defects, tenderness, masses, effusions, decreased range of motion, instability, atrophy or abnormal strength or tone in the head, neck, spine, ribs , pelvis or extremities. Neurologic: CN 2-12 normal. Sensation to pain, touch, and proprioception normal. DTRs normal in upper and lower extremities. No pathologic reflexes. Psychiatric: Oriented X3, intact recent and remote memory, judgment and insight , normal mood and affect. Limitations: no limitations Course Vital Signs 04/19/17 04/19/17 01:11 02:29 Temperature 97.4 F L Pulse Rate 88 67 Respiratory 16 18 Rate Blood Pressure 169/97 152/98 O2 Sat by Pulse 97 97 Oximetry Medical Decision Making - Medical Decision Making 56-year-old male. No acute distress presents emergency department via EMS for history of difficulty breathing. On arrival to the ED, patient reports that he does not know why he is here. He states that he did go to the emergency department to make his feel better. He denies any difficulty in breathing or new chest pain at this time. He reports THAT symptoms have chronic. Patient EKG was reviewed from EMS shows sinus rhythm. No evidence of ST elevation or T-wave inversion. No evidence of atrial or ventricular arrhythmias. Patient reports that he has with her sitting on the couch when he was apprised and EMS arrived. Later on the visit patient tried to contact his she would answer the phone or toxic. She did arrive to emergency department. Patient will not consent to treatment because he does not want to be seen as he states that he is feeling better. Physical exam was benign. He is in no respiratory distress, lungs are clear to auscultation. Patient declines blood work or further EKG or workup. Patient arrived to emergency department states that she will take him home. 04/19/17 04:01 EKG shows sinus rhythm with occasional PVCs. Heart rate 92 beats were minute. AR interval is 0.12 seconds. QRS ration is 94 ms. QT QTc is 364/420 ms. Disposition Clinical Impression: History of dyspnea Disposition: HOME SELF-CARE Condition: Good Instructions: Dyspnea (ED) Additional Instructions: Patient has continued to use albuterol breathing treatments. Follow-up with your primary care provider. Return the emergency department if any alarming signs or symptoms occur. Referrals: Nonstaff,Physician [Primary Care Provider] - 1-2 days Neeru Finley MD [STAFF PHYSICIAN] - 1-2 days Time of Disposition: 02:17
[2017-04-19 02:30] VITALS: BP 152/98; PULSE 67; RESP 18
== END 2017-04-19 02:30 | disposition home or self-care (01) ==
LOC: EC 00:58
DX: R06.02 Shortness of breath (principal); I10 Essential (primary) hypertension; F41.9 Anxiety disorder, unspecified; F17.200 Nicotine dependence, unspecified, uncomplicated; Z79.899 Other long term (current) drug therapy; Z88.1 Allergy status to other antibiotic agents
CPT/HCPCS: 99285

== ENCOUNTER → 2017-05-05 | Outpatient (CLI) | payer BC ==
--- NOTE | 2017-05-12 16:29 | NM ---
EXAMINATION TYPE: NM brain SPECT DATE OF EXAM: 05/12/2017 COMPARISON: NONE HISTORY: 56 year-old male history of Lyme disease, memory loss for 3 years, progressively worsening f or the past 3 months. TECHNIQUE: Following injection of 27.5 mCi Tc 99m Neurolite, SPECT images of the brain were obtained and reconstructed in three axes. Images obtained 90 minutes post injection. FINDINGS: Color images show relatively higher degree of perfusion to the occipital lobes and cerebellum. There is decreased cortical uptake within the anterior frontal lobes and within the bilateral temporal lobe s. Parietal uptake appears relatively symmetric. IMPRESSION: Decreased cortical perfusion to the anterior bifrontal and bilateral temporal lobes. Findings can be seen in the setting of chronic Lyme disease. Consider follow-up after treatment.
== END | disposition home or self-care (01) ==
LOC: RADNMMAIN 12:56
PROVIDERS: ATTEND Internal Medicine Infectious Disease
DX: A69.20 Lyme disease, unspecified (principal)
CPT/HCPCS: 78607; A9557

== ENCOUNTER 2017-09-24 22:37 | Observation (INO) | payer BC ==
[2017-09-24] MEDS ORDERED: SODIUM CHLORIDE 0.9% 500 ML IV STA (22:59)
[2017-09-24] MEDS ORDERED: NITROGLYCERIN SL TABS 0.4 MG TAB SUBLINGUAL STA (22:59)
[2017-09-24] MEDS ORDERED: ASPIRIN 81 MG PO STA (22:59)
[2017-09-24] MEDS ORDERED: MORPHINE SULFATE 2 MG/ML SYRINGE IVP STA (22:59)
[2017-09-24] MEDS ORDERED: SODIUM CHLORIDE 0.9% 1,000 ML IV STA (23:01)
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
[2017-09-24 23:14] LABS: Basophils # (A) 0.1 k/uL (0-0.2); Basophils % (A) 1 %; CHCM 33.3; Eosinophils # (A) 0.3 k/uL (0-0.7); Eosinophils % (A) 4 %; HCT 46.9 % (39.0-53.0); HDW 2.16; HGB 15.4 gm/dL (13.0-17.5); Luc # (Auto) 0.16; Luc % (Auto) 2; Lymphocytes # (A) 2.7 k/uL (1.0-4.8); Lymphocytes % (A) 30 %; MCH 33.6 pg (25.0-35.0); MCHC 32.8 g/dL (31.0-37.0); MCV 102.5 fL (80.0-100.0); Macrocytosis Slight; Monocytes # (A) 0.7 k/uL (0-1.0); Monocytes % (A) 7 %; Neutrophils # (A) 5.1 k/uL (1.3-7.7); Neutrophils % (A) 56 %; RBC 4.58 m/uL (4.30-5.90); WBC (Perox) 9.28
[2017-09-24 23:18] LABS: Glucose,Whole Blood 114 mg/dL (75-99)
[2017-09-24 23:24] LABS: Anion Gap 11 mmol/L; Calcium 9.6 mg/dL (8.4-10.2); Carbon Dioxide 21 mmol/L (22-30); Chloride 104 mmol/L (98-107); Glucose 108 mg/dL (74-99); Non-African American GFR(MDRD) >60 (>60 ml/min/1.73 sqM); Sodium 136 mmol/L (137-145); Total Bilirubin 0.4 mg/dL (0.2-1.3); Total Protein 6.9 g/dL (6.3-8.2)
[2017-09-24 23:30] LABS: Blood Urea Nitrogen 10 mg/dL (9-20); Magnesium 2.2 mg/dL (1.6-2.3); Potassium 4.9 mmol/L (3.5-5.1)
[2017-09-24 23:31] LABS: ALT 41 U/L (21-72); AST 37 U/L (17-59); Alkaline Phosphatase 98 U/L (38-126)
[2017-09-24 23:37] LABS: Creatine Kinase 85 U/L (55-170)
[2017-09-24 23:41] LABS: Partial Thromboplastin Time 24.2 sec (22.0-30.0)
[2017-09-24 23:44] LABS: INR 0.9 (<1.2); Prothrombin Time 9.7 sec (9.0-12.0)
[2017-09-24 23:50] LABS: Creatine Kinase MB 1.3 ng/mL (0.0-2.4); Troponin I <0.012 ng/mL (0.000-0.034)
[2017-09-24 23:51] LABS: Erythrocyte Sedimentation Rate 2 mm/hr (0-15)
--- NOTE | 2017-09-25 00:34 | CT ---
EXAMINATION TYPE: CT brain wo con DATE OF EXAM: 09/25/2017 COMPARISON: NONE HISTORY: No prior, DO, chest pain, SOB CT DLP: DLP:1078.70 mGycm Automated exposure control for dose reduction was used. FINDINGS: Ventricles have normal size. There is no mass effect nor midline shift. There is no sign of intracran ial hemorrhage. The calvarium is intact. There is a coastal thickening in the left maxillary sinus. IMPRESSION: NEGATIVE CT SCAN OF THE BRAIN. LEFT MAXILLARY SINUSITIS.
--- NOTE | 2017-09-25 00:35 | XR ---
EXAMINATION TYPE: XR chest 2V DATE OF EXAM: 09/25/2017 COMPARISON: 03/13/2017 HISTORY: Chest pain TECHNIQUE: Frontal and lateral views of the chest are obtained. FINDINGS: There is no heart failure nor confluent pneumonic infiltrate. Heart size is normal. Cervic al spine fusion surgery is noted. There are chest leads. There is no evidence of pleural effusion. Yariel ny thorax appears intact. IMPRESSION: No active cardiopulmonary disease. No change.
[2017-09-25] MEDS ORDERED: NITROGLYCERIN SL TABS 0.4 MG TAB SUBLINGUAL PRN (00:54)
[2017-09-25] MEDS ORDERED: HYDROmorphone 2 MG/ML 1 ML SYRINGE IVP STA (01:27)
[2017-09-25] MEDS ORDERED: NALOXONE 0.4 MG/ML 1 ML VIAL IV PRN (03:10)
[2017-09-25] MEDS ORDERED: ALPRAZolam 0.5 MG TAB PO PRN (03:13)
[2017-09-25] MEDS ORDERED: HYDROcodone/APAP 10-325MG 1 EACH TAB PO PRN (03:13)
[2017-09-25] MEDS ORDERED: ONDANSETRON ODT 8 MG TAB.RAPDIS PO PRN (03:13)
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
[2017-09-25 04:22] VITALS: BMI 25.5
[2017-09-25] MEDS: HYDROcodone/APAP 10-325MG 1 EACH TAB PO PRN ×3 (04:29→20:28)
[2017-09-25 05:49] LABS: Creatine Kinase 67 U/L (55-170)
[2017-09-25 06:03] LABS: Creatine Kinase MB 1.2 ng/mL (0.0-2.4); Troponin I <0.012 ng/mL (0.000-0.034)
[2017-09-25] MEDS: PANTOPRAZOLE 40 MG TABLET PO SCH (06:55)
[2017-09-25] MEDS ORDERED: ASPIRIN 325 MG TAB PO SCH (09:00)
[2017-09-25 11:12] LABS: Cholesterol 218 mg/dL (<200); HDL Cholesterol 78 mg/dL (40-60)
[2017-09-25 11:41] LABS: Creatine Kinase 67 U/L (55-170)
[2017-09-25] MEDS: LOSARTAN 50 MG TAB PO SCH (11:51)
[2017-09-25 11:52] LABS: Creatine Kinase MB 1.2 ng/mL (0.0-2.4); Troponin I <0.012 ng/mL (0.000-0.034)
[2017-09-25] MEDS: amLODIPine 5 MG TAB PO SCH (11:52)
[2017-09-25] MEDS: ASPIRIN 81 MG PO SCH (11:52)
--- NOTE | 2017-09-25 11:59 | P.CRDCN ---
History of Present Illness Consult date: 09/25/17 History of present illness: This is a 56-year-old male past medical history significant for COPD, hyperlipidemia, hypertension, gastroesophageal reflux disease and chronic tobacco abuse. He does not follow regularly with a government affairs director as an outpatient. He did undergo cardiac catheterization in March [address] Bobby after an inconclusive stress test. Mild nonobstructive coronary artery disease was seen. 20-30% in the LAD most significant. At that time he had normal LV systolic function with ejection fraction 55-60%. We have been asked to see him in consultation for complaints of persistent chest discomfort. The pain is described as heaviness across his entire chest with some degree of radiation into the left arm, neck and left side of his face. He also has associated tingling sensation of left arm and face with blurry vision in the left eye. He states this has been ongoing and persistent for the previous month to year and sometimes causes him to remain in bed all day doubled over in pain. Sublingual nitroglycerin provides no relief of the symptoms. He complains of intermittent shortness of breath and denies dizziness, vomiting or diaphoresis. He states he 's also has a persistent headache. CT of the brain was performed and is negative for any acute intracranial process. EKG reveals sinus mechanism with no acute ST or T-wave abnormalities. Chest x-ray negative for acute cardiopulmonary process. Cardiac enzymes negative 2 potassium 4.9, magnesium 2.2. Review of Systems CONSTITUTIONAL: Denies fever. Denies chills. EYES: Denies blurred vision. Complains of left eye vision changes. Denies eye pain. EARS, NOSE, MOUTH & THROAT: Complains of persistent headache. Denies sore throat. Denies ear pain. CARDIOVASCULAR: Complains of persistent chest pain is intermittent shortness of breath. Denies orthopnea. Denies PND. Denies palpitations. RESPIRATORY: Denies cough. GASTROINTESTINAL: Denies abdominal pain. Denies diarrhea. Denies constipation. Denies nausea. Denies vomiting. MUSCULOSKELETAL: Denies myalgias. INTEGUMENTARY: Denies pruitis. Denies rash. NEUROLOGIC: Denies numbness. Complains of tingling on left side of his body. Denies weakness. PSYCHIATRIC: Denies anxiety. Denies depression. ENDOCRINE: Denies fatigue. Denies weight change. Denies polydipsia. Denies polyurina. GENITOURINARY: Denies burning, hematuria or urgency with micturation. HEMATOLOGIC: Denies history of anemia. Denies bleeding. Past Medical History Past Medical History: Asthma, COPD, Fibromyalgia, GERD/Reflux, Hyperlipidemia, Hypertension, Osteoarthritis (OA), Pneumonia Additional Past Medical History / Comment(s): lyme disease History of Any Multi-Drug Resistant Organisms: None Reported Past Surgical History: Back Surgery, Cholecystectomy Additional Past Surgical History / Comment(s): PLATE TO NECK, LEFT SHOULDER, ELBOW AND WRISTS, HANDS, STOMACH SURGERY Past Anesthesia/Blood Transfusion Reactions: No Reported Reaction Past Psychological History: Anxiety Smoking Status: Current every day smoker Past Alcohol Use History: Occasional Past Drug Use History: None Reported - Past Family History Mother Family Medical History: Osteoarthritis (OA) Father Family Medical History: Coronary Artery Disease (CAD), Diabetes Mellitus, Hypertension Son(s) Family Medical History: No Reported History Medications and Allergies Home Medications Medication Instructions Recorded Confirmed Type ALPRAZolam [Xanax] 1 mg PO BID PRN 03/13/17 09/24/17 History Albuterol Sulfate [Proair Hfa] 1 - 2 puff INHALATION RT-Q6H PRN 03/13/17 History HYDROcodone/APAP 10-325MG [[place] 0.5 - 1 tab PO TID PRN 09/24/17 09/24/17 History 10-325] Losartan Potassium [Cozaar] 150 mg PO DAILY 09/24/17 09/24/17 History Omeprazole [PriLOSEC] 20 mg PO DAILY 09/24/17 09/24/17 History Ondansetron [Zofran ODT] 8 mg PO Q8HR PRN 09/24/17 09/24/17 History amLODIPine [Norvasc] 5 mg PO DAILY 09/24/17 09/24/17 History Allergies Allergy/AdvReac Type Severity Reaction Status Date / Time metronidazole [From Flagyl] Allergy Unknown Verified 09/24/17 23:05 Physical Exam Vitals: Vital Signs Temp Pulse Pulse Resp BP BP Pulse Ox 09/25/17 09:09 97.7 F 70 18 172/104 95 09/25/17 08:00 60 18 09/25/17 04:00 97.2 F L 60 18 138/86 96 09/25/17 01:37 62 18 145/85 96 09/25/17 01:27 97.0 F L 64 18 169/99 95 09/25/17 01:00 97.6 F 64 18 129/64 96 09/25/17 00:45 63 18 129/75 97 09/24/17 23:27 79 16 118/72 94 L 09/24/17 23:22 74 16 119/78 95 09/24/17 23:17 79 16 152/95 09/24/17 22:59 71 18 156/90 98 09/24/17 22:42 98.4 F 70 18 166/100 98 Intake and Output 09/24/17 09/25/17 09/25/17 22:59 06:59 14:59 Other: Voiding Method Toilet Toilet # Voids 1 Weight 79.832 kg 80.7 kg GENERAL: This is a 56-year-old male in no apparent distress at the time of my examination. HEENT: Head is atraumatic, normocephalic. Pupils are equal, round. Sclerae anicteric. Conjunctivae are clear. Mucous membranes of the mouth are moist. Neck is supple. There is no jugular venous distention. No carotid bruit is heard. LUNGS: Clear to auscultation no wheezes, rales or rhonchi. No chest wall tenderness is noted on palpation or with deep breathing. HEART: Regular rate and rhythm without murmurs, rubs or gallops. S1 and S2 heard. ABDOMEN: Soft, nontender. Bowel sounds are heard. No organomegaly noted. EXTREMITIES: 2+ peripheral pulses with no evidence of peripheral edema and no calf tenderness noted. NEUROLOGIC: Patient is awake, alert and oriented x3. Results 09/24/17 22:55 09/24/17 22:55 Cardiac Enzymes 09/24/17 09/24/17 09/25/17 Range/Units 22:55 22:55 04:25 AST 37 (17-59) U/L CK-MB (CK-2) 1.3 1.2 (0.0-2.4) ng/mL Troponin I <0.012 <0.012 (0.000-0.034) ng/mL Coagulation 09/24/17 Range/Units 22:55 PT 9.7 (9.0-12.0) sec APTT 24.2 (22.0-30.0) sec CBC 09/24/17 Range/Units 22:55 WBC 9.0 (3.8-10.6) k/uL RBC 4.58 (4.30-5.90) m/uL Hgb 15.4 (13.0-17.5) gm/dL Hct 46.9 (39.0-53.0) % Plt Count 228 (150-450) k/uL Comprehensive Metabolic Panel 09/24/17 Range/Units 22:55 Sodium 136 L (137-145) mmol/L Potassium 4.9 (3.5-5.1) mmol/L Chloride 104 (98-107) mmol/L Carbon Dioxide 21 L (22-30) mmol/L BUN 10 (9-20) mg/dL Creatinine 0.70 (0.66-1.25) mg/dL Glucose 108 H (74-99) mg/dL Calcium 9.6 (8.4-10.2) mg/dL AST 37 (17-59) U/L ALT 41 (21-72) U/L Alkaline Phosphatase 98 (38-126) U/L Total Protein 6.9 (6.3-8.2) g/dL Albumin 4.3 (3.5-5.0) g/dL Current Medications Generic Name Dose Route Start Last Admin Trade Name Freq PRN Reason Stop Dose Admin Hydrocodone Bitart/Acetaminophen 1 each 09/25/17 03:55 09/25/17 04:29 [place] 10 PO 1 each TID PRN Administration Pain Alprazolam 1 mg 09/25/17 03:13 Xanax PO BID PRN Anxiety Amlodipine Besylate 5 mg 09/25/17 09:00 Norvasc PO DAILY [facility] Aspirin 81 mg 09/25/17 09:00 Aspirin PO DAILY [facility] Losartan Potassium 150 mg 09/25/17 09:00 Cozaar PO DAILY [facility] Naloxone HCl 0.2 mg 09/25/17 03:10 Narcan IV Q2M PRN Opioid Reversal Nitroglycerin 0.4 mg 09/25/17 00:54 Nitrostat SUBLINGUAL Q5M PRN Chest Pain Ondansetron HCl 8 mg 09/25/17 03:13 Zofran Odt PO Q8HR PRN Nausea Pantoprazole Sodium 40 mg 09/25/17 07:30 09/25/17 06:55 Protonix PO 40 mg [id number] JESSICA Administration Intake and Output 09/24/17 09/25/17 09/25/17 22:59 06:59 14:59 Other: Voiding Method Toilet Toilet # Voids 1 Weight 79.832 kg 80.7 kg 09/24/17 22:55 09/24/17 22:55 Assessment and Plan Assessment: ASSESSMENT 1. Chest pain, atypical for acute coronary syndrome. Troponins negative 2. EKG shows normal sinus rhythm with no acute changes. Recent cardiac catheterization shows mild nonobstructive disease. 2. Essential hypertension 3. Hyperlipidemia, unable to tolerate statin medication 4. Chronic tobacco abuse PLAN There is no need for further cardiac work-up at this time. His presentation appears to have more of neurologic component. He should follow up with Dr. Bobby as an outpatient. Smoking cessation has been discussed. Nurse Practitioner note has been reviewed, I agree with a documented findings and plan of care. Patient was seen and examined.
[2017-09-25] MEDS: GABAPENTIN 300 MG CAP PO SCH ×3 (14:29→20:28)
--- NOTE | 2017-09-25 14:45 | MR ---
EXAMINATION TYPE: MR brain wo con DATE OF EXAM: 09/25/2017 2:27 PM COMPARISON: NONE HISTORY: blurry vision, left facial tingling, hx of lyme Multiplanar and multispin-echo imaging of the brain was performed . The ventricles, basal cisterns and sulci overlying the cerebral convexities are within normal limits. There is no evidence for midline shift or mass effect. Acute intracranial hemorrhage or extra-axial collection is not evident. Foci of increased signal are identified on the T2 FLAIR data set ranging in size from several millime ters to approximately 6.6 mm left frontal lobe. Total number of lesions right cerebral hemispheres es timated at between 16 and 20 and left cerebral hemisphere estimated at 20-25. No acute edema is identified. The paranasal sinuses and mastoid air cells are well-aerated. IMPRESSION: Multiple nonspecific T2 deep white matter lesions. Findings can be seen in patients with Lyme's disea se. Additional considerations include that of multiple sclerosis, vasculitis and sequela of chronic m igraine headaches among other possibilities.
--- NOTE | 2017-09-25 14:46 | P.PN ---
Progress Note - Text Progress Note Date: 09/25/17 Briefly this is a 56-year-old male that presented with atypical chest pain, his workup so far as been negative for any signs of ischemia and his cardiac markers or on his EKG. Cardiology was consulted for further evaluation given that the patient has had a negative heart cath earlier this year, they determined that the chest pain was noncardiac in origin and recommended further follow-up with orthopedic/neurosurgery surgery given the patient's history of neck surgery with plating. The patient has a history of chronic pain and reports to being on oral Dilaudid at home. I've been unable to corroborate his pain regimen at this time I will start the patient on Neurontin 300 mg by mouth 3 times a day and await further recommendations from neurology consultation.
--- NOTE | 2017-09-25 21:45 | CONS ---
CONSULTATION DATE OF CONSULTATION: 09/25/2017. CHIEF COMPLAINT: Facial numbness, headache, visual changes. HISTORY OF PRESENT ILLNESS: Mr. Bosch is a pleasant 56-year-old, male, who is being evaluated by the Neurology Service per the request of Dr. Lynch for the above-mentioned complaints. The patient was brought into [facility] Emergency room with the complaint of severe chest pain. His cardiac workup was negative as he had a serial cardiac enzymes which showed no elevation in any of his troponin I, CK-MB, or CPK. He was evaluated by Cardiology. The patient also reports that he had transient episode of numbness and tingling involving his left face. He also noticed some temporal headache and visual changes involving his left eye. He denies any previous symptoms similar to this. A CT scan of the brain was done, which was normal. His CBC and comprehensive metabolic profile were normal. His fasting lipid panel showed elevated triglycerides at 476 and mildly elevated total cholesterol at 218. Regarding his chest pain, he states that he has been having on and off chest discomfort over the past 5 years. He has been started on aspirin on this admission. He denies any neurological symptoms at the time of my evaluation except for a mild headache in the left temporal region which he rates at a 2/10 in intensity at the time of my evaluation. PAST MEDICAL HISTORY: Asthma, COPD, fibromyalgia, gastroesophageal reflux disease, dyslipidemia, hypertension, arthritis, history of Lyme disease, history of spine surgery and cholecystectomy and orthopedic surgeries. He also has history of anxiety disorder. FAMILY HISTORY: Positive for arthritis, diabetes, hypertension and heart disease. SOCIAL HISTORY: The patient is a current every day smoker. He occasionally drinks alcohol. He denies any drug use. REVIEW OF SYSTEM: CONSTITUTIONAL: Negative. EYES: As mentioned above. ENT: Negative. CARDIOVASCULAR: As mentioned above. RESPIRATORY: Positive for occasional shortness of breath. NEUROLOGICAL: As mentioned above. GASTROINTESTINAL: Negative. GENITOURINARY: Negative. MUSCULOSKELETAL: As mentioned above. PSYCHIATRIC: Positive for history of anxiety disorder. DERMATOLOGICAL: Negative. ENDOCRINE: Negative. PHYSICAL EXAM: Vital signs show a temperature of 97.6, pulse 72, respiration 18, blood pressure 115/84. GENERAL APPEARANCE: The patient is a well-developed male, who appears to be in no acute distress. HEENT: Normocephalic, atraumatic. No facial asymmetry is seen, extraocular muscles are intact. No tenderness to palpation is felt along the temporal regions. NECK: Supple with no masses felt. CARDIOVASCULAR: Regular rate and rhythm. ABDOMEN: Nontender nondistended. Extremities showed no edema or clubbing. Neurological exam: The patient is alert aware and oriented x3. Speech and language are normal. Strength is full in all 4 extremities. Sensory exam was normal to light touch in all 4 extremities. No facial asymmetry or sensory deficit is noticed on cranial nerve testing. No tremors or seizure-like activity is seen. IMPRESSION: 1. Left facial numbness, resolved. 2. Recurrent visual changes, left eye. 3. Chronic pain syndrome. 4. Dyslipidemia. 5. Headache. RECOMMENDATION: The patient's left facial numbness could be the result of a transient ischemic attack. Continue aspirin 81 mg daily which has been started on this admission. I will order a carotid Doppler. His fasting lipid panel did show significantly elevated triglyceride levels. I do recommend medical therapy for this. As for his left temporal head pain and recurrent visual changes in the left eye, there is slight concern for temporal arteritis. I will order an ESR and a CRP. I will give him a single dose of IV Solu- Medrol 500 mg and I will start him on prednisone 40 mg daily starting tomorrow. A carotid Doppler will be ordered. The patient was counseled on tobacco cessation. Continue the rest of your current workup and management. I will continue to follow with you. Further recommendations to follow. Thank you for allowing me to participate in the care of your patient. If you have any questions, please feel free to contact me. MMODConner / IJN: [id number] /
--- NOTE | 2017-09-25 23:48 | US ---
EXAMINATION TYPE: US carotid duplex BILAT DATE OF EXAM: 09/25/2017 COMPARISON: NONE CLINICAL HISTORY: TIA. Dizziness EXAM MEASUREMENTS: RIGHT: Peak Systolic Velocity (PSV) cm/sec ----- Right CCA: 79.8 ----- Right ICA: 64.5 ----- Right ECA: 75.7 ICA/CCA ratio: 0.8 RIGHT: End Diastole cm/sec ----- Right CCA: 20.2 ----- Right ICA: 26.1 ----- Right ECA: 15.3 LEFT: Peak Systolic Velocity (PSV) cm/sec ----- Left CCA: 73.9 ----- Left ICA: 71.3 ----- Left ECA: 52.3 ICA/CCA ratio: 1.0 LEFT: End Diastole cm/sec ----- Left CCA: 21.0 ----- Left ICA: 27.6 ----- Left ECA: 12.1 VERTEBRALS (direction of flow): Right Vertebral: Antegrade Left Vertebral: Antegrade Rhythm: Normal No significant stenosis seen IMPRESSION: There is antegrade flow in the vertebral arteries. The images and measurements suggest l ess than 25% stenosis in both internal carotid arteries. Criteria for Assigning % of Stenosis / Diameter reduction (Estimation based on the indirect measurements of the internal carotid artery velocities (ICA PSV). 1. Normal (no stenosis)=ICA PSV < 125 cm/s: ratio < 2.0: ICA EDV<40 cm/s. 2. Less than 50% stenosis=ICA PSV < 125 cm/s: ratio < 2.0: ICA EDV<40 cm/s. 3. 50 to 69% stenosis=ICA PSV of 125 to 230 cm/s: ration 2.0 ? 4.0: ICA EDV 40-100 cm/s. 4. Greater than 70% stenosis to near occlusion= ICA PSV > 230 cm/s: ratio > 4.0: ICA EDV > 100 cm/s. 5. Near occlusion= ICA PSV velocities may be low or undetectable: variable ratio and ICA EDV. 6. Total occlusion=unable to detect flow.
[2017-09-26 05:12] VITALS: RESP 18
[2017-09-26] MEDS: HYDROcodone/APAP 10-325MG 1 EACH TAB PO PRN ×2 (05:42→13:55)
[2017-09-26 06:49] LABS: Basophils % (A) 0 %; CH 33.1; CHCM 32.6; Eosinophils % (A) 0 %; HCT 44.6 % (39.0-53.0); HDW 2.18; HGB 14.7 gm/dL (13.0-17.5); Luc # (Auto) 0.02; Luc % (Auto) 0; Lymphocytes # (A) 0.6 k/uL (1.0-4.8); Lymphocytes % (A) 8 %; MCH 33.6 pg (25.0-35.0); MCHC 32.9 g/dL (31.0-37.0); Macrocytosis Slight; Mean Platelet Volume 7.4; Monocytes # (A) 0.1 k/uL (0-1.0); Monocytes % (A) 1 %; Neutrophils # (A) 6.6 k/uL (1.3-7.7); Neutrophils % (A) 91 %; RBC 4.37 m/uL (4.30-5.90); RDW 12.7 % (11.5-15.5); WBC 7.3 k/uL (3.8-10.6); WBC (Perox) 7.56
[2017-09-26 07:17] LABS: ALT 36 U/L (21-72); AST 24 U/L (17-59); Alkaline Phosphatase 81 U/L (38-126); Anion Gap 11 mmol/L; Blood Urea Nitrogen 12 mg/dL (9-20); Calcium 9.7 mg/dL (8.4-10.2); Carbon Dioxide 23 mmol/L (22-30); Chloride 103 mmol/L (98-107); Cholesterol 215 mg/dL (<200); Glucose 181 mg/dL (74-99); HDL Cholesterol 78 mg/dL (40-60); Magnesium 1.9 mg/dL (1.6-2.3); Non-African American GFR(MDRD) >60 (>60 ml/min/1.73 sqM); Phosphorus 3.2 mg/dL (2.5-4.5); Potassium 4.6 mmol/L (3.5-5.1); Sodium 137 mmol/L (137-145); Total Bilirubin 0.4 mg/dL (0.2-1.3); Total Protein 6.5 g/dL (6.3-8.2)
[2017-09-26] MEDS: GABAPENTIN 300 MG CAP PO SCH (08:20)
[2017-09-26] MEDS: PANTOPRAZOLE 40 MG TABLET PO SCH (08:20)
[2017-09-26] MEDS: amLODIPine 5 MG TAB PO SCH (08:21)
[2017-09-26] MEDS: LOSARTAN 50 MG TAB PO SCH (08:21)
[2017-09-26] MEDS: ASPIRIN 81 MG PO SCH (08:21)
[2017-09-26] MEDS ORDERED: predniSONE 20 MG TAB PO SCH (09:00)
[2017-09-26] MEDS ORDERED: NICOTINE 14MG/24HR PATCH TRANSDERM SCH (09:45)
--- NOTE | 2017-09-26 14:54 | P.PN ---
Subjective Progress Note Date: 09/26/17 Principal diagnosis: Patient is a pleasant 56-year-old male who is being followed by the neurology service for facial numbness, headache, and visual changes. Patient to [facility] with complaints of severe Pain. Patient states he has had this test. Approximately 5 years but has been progressively getting worse. Patient also complains of left shoulder pain and neck pain. Patient had cardiac workup which showed no elevation in any of his cardiac enzymes. He was evaluated by cardiology. Patient does state he had a transient episode of left facial numbness. Patient said this pain comes and goes. Patient also complained of temporal headache and visual changes involving his left eye. Computed tomography scan of the brain was done which was normal. MRI of the brain showed multiple deep white matter lesions with differential diagnosis including Lyme's disease, multiple sclerosis, vasculitis, and history of chronic migraine headaches. His fasting lipid panel showed elevated triglycerides and elevated total cholesterol. Patient does state he cannot take statin drug therapy due to increased musculoskeletal pain. Vital signs are stable. Patient is afebrile. At the time of my evaluation, patient is ambulating in the walker and appears to be in no acute distress. Patient states neurological symptoms have subsided at this time. Objective - Vital Signs Vital signs: Vital Signs Temp 97.8 F 09/26/17 12:00 Pulse 101 H 09/26/17 12:00 Resp 18 09/26/17 12:00 BP 121/79 09/26/17 12:00 Pulse Ox 93 L 09/26/17 12:00 Intake & Output 09/25/17 09/26/17 09/26/17 18:59 06:59 18:59 Intake Total 472 1400 Balance 472 1400 Intake: Oral 472 600 Other 800 Other: Voiding Method Toilet Toilet Toilet # Voids 3 1 - Exam PHYSICAL EXAM: GENERAL APPEARANCE: Patient is a well-developed, male who appears to be in no acute distress. HEENT: Normocephalic, atraumatic, no facial asymmetry is seen. Neck is supple with no masses felt. CARDIOVASCULAR: Regular rate and rhythm. ABDOMEN: Nontender, nondistended. EXTREMITIES: Show no edema or clubbing. NEUROLOGICAL EXAM: Patient is awake, alert, and oriented 3. Speech and language are normal. Strength is full in all 4 extremities. Sensory exam to light touch is normal in all 4 extremities. No facial asymmetry is seen on cranial nerve testing. No tremors or seizure-like activity is noted. - Labs CBC & Chem 7: 09/26/17 06:27 09/26/17 06:27 Labs: Abnormal Lab Results - Last 24 Hours (Table) 09/26/17 09/26/17 Range/Units 06:27 06:27 MCV 102.0 H (80.0-100.0) fL Lymphocytes # 0.6 L (1.0-4.8) k/uL Glucose 181 H (74-99) mg/dL Cholesterol 215 H (<200) mg/dL LDL Cholesterol, Calc 108 H (0-99) mg/dL HDL Cholesterol 78 H (40-60) mg/dL Assessment and Plan Plan: Impression: 1. Left facial numbness, resolved 2. Recurrent visual changes, left eye 3. History of Lyme's disease 4. Chronic pain syndrome 5. Dyslipidemia 6. Chronic headaches Recommendations: The patient's left facial numbness and left eye pain have resolved at this time. This could be the result of a transient ischemic attack. I will switch his aspirin to Plavix 75 mg by mouth daily. His carotid Doppler showed no hemodynamically significant stenosis. Fasting lipid panel did show elevated triglyceride levels for which I do recommend medical therapy. As for his left temporal head pain and recurrent visual changes he had an ESR and CRP done for possible temporal arteritis. Both of which were negative. I will discontinue the prednisone. Homocystine level is pending. As for patient' s chronic pain syndrome and migraine headaches, we can continue more thorough workup for this as an outpatient. From a neurological standpoint, patient is stable for discharge. He needs to follow-up in the office in 1-2 weeks. I will continue to follow with you on an as-needed basis. Feel free to call with any questions or concerns. I performed an examination of the patient and discussed the management with the TELECOMMUNICATIONS CONSULTANT. I have reviewed the TELECOMMUNICATIONS CONSULTANT notes and agree with the findings and plan of care.
[2017-09-26 15:22] VITALS: BP 133/85; PULSE 105; TEMP 97.5
[2017-09-27] MEDS ORDERED: CLOPIDOGREL 75 MG TAB PO SCH (09:00)
--- NOTE | 2017-09-27 09:53 | P.DS ---
Providers Date of admission: 09/25/17 01:11 Expected date of discharge: 09/26/17 Attending physician: Lisa Landry MD Consults: 09/25/17 03:15 Consult Physician Routine Consulting Provider: Dayan Will Consult Reason/Comments: left facial tingling and left sided blurry vision, hx of lyme Do you want consulting provider notified?: Yes, Notify in am Primary care physician: Physician Nonstaff - Discharge Diagnosis(es) (1) Cervicalgia Status: Acute (2) Atypical chest pain Status: Acute (3) TIA (transient ischemic attack) Status: Acute (4) Headache Status: Acute (5) Lyme disease Status: Acute Hospital Course: 56-year-old male with a history of eye disease or presented with atypical chest pain with CAD risk factors including age hypertension and dyslipidemia. He was placed on observation to rule out ACS his initial and subsequent trends of his cardiac enzymes are all normal. His EKG showed evidence of any acute ischemia. Cardiology has been consult did they determined that the the pain was likely noncardiac so especially since patient has had a negative recent heart cath in March of this year. the patient also had complaints of left facial numbness paresthesias with blurry vision and headache , workup for TIA CVA is unremarkable. CT of the head was negative for any acute ischemia, did show left maxillary sinusitis. carotid Dopplers were negative for any clinically significant carotid artery stenosis. MRI did show nonspecific to deep white matter lesions which can be consistent with Lyme's disease versus MS vasculitis and from chronic migraine headaches. Neurology Dr. Coppola started the patient empirically for possible temporal arteritis workup however subsequent inflammatory markers such as CRP and ESR were negative the patient was discontinued off steroids. it was thought the patient's neurological symptoms are either due to a TIA versus underlying Lyme's disease.neurology clear the patient for discharge and plan for follow-up in clinic in the next 7 days with prescription for Plavix 75 mg by mouth daily and Neurontin 300 mg by mouth 3 times a day. this discharge process took less than 30 minutes Patient Condition at Discharge: Stable Plan - Discharge Summary New Discharge Prescriptions: New Gabapentin [Neurontin] 300 mg PO TID #90 cap Clopidogrel [Plavix] 75 mg PO DAILY #30 tab Continue Albuterol Sulfate [Proair Hfa] 1 - 2 puff INHALATION RT-Q6H PRN PRN Reason: Shortness Of Breath ALPRAZolam [Xanax] 1 mg PO BID PRN PRN Reason: Anxiety Omeprazole [PriLOSEC] 20 mg PO DAILY amLODIPine [Norvasc] 5 mg PO DAILY Ondansetron [Zofran ODT] 8 mg PO Q8HR PRN PRN Reason: Nausea Losartan Potassium [Cozaar] 150 mg PO DAILY HYDROcodone/APAP 10-325MG [[place] 10-325] 0.5 - 1 tab PO TID PRN PRN Reason: Pain Discharge Medication List ALPRAZolam [Xanax] 1 mg PO BID PRN 03/13/17 [History] Albuterol Sulfate [Proair Hfa] 1 - 2 puff INHALATION RT-Q6H PRN 03/13/17 [ History] HYDROcodone/APAP 10-325MG [[place] 10-325] 0.5 - 1 tab PO TID PRN 09/24/17 [ History] Losartan Potassium [Cozaar] 150 mg PO DAILY 09/24/17 [History] Omeprazole [PriLOSEC] 20 mg PO DAILY 09/24/17 [History] Ondansetron [Zofran ODT] 8 mg PO Q8HR PRN 09/24/17 [History] amLODIPine [Norvasc] 5 mg PO DAILY 09/24/17 [History] Clopidogrel [Plavix] 75 mg PO DAILY #30 tab 09/26/17 [Rx] Gabapentin [Neurontin] 300 mg PO TID #90 cap 09/26/17 [Rx] Follow up Appointment(s)/Referral(s): Wilber Bobby MD [STAFF PHYSICIAN] - 2 Weeks Dayan Will MD [STAFF PHYSICIAN] - 1 Week (Office will call patient for follow up appointment.) Patient Instructions/Handouts: Angina (GEN), Acute Headache (GEN) Discharge Disposition: HOME SELF-CARE
== END 2017-09-26 15:53 | disposition home or self-care (01) ==
LOC: EC 22:37 → 6SEL 09-25 01:11 → 3OBS 09-25 08:09
PROVIDERS: ADMIT Internal Medicine; ATTEND Internal Medicine
DX: R07.89 Other chest pain (principal); G45.9 Transient cerebral ischemic attack, unspecified; R51 Headache; M54.2 Cervicalgia; A69.20 Lyme disease, unspecified; J44.9 Chronic obstructive pulmonary disease, unspecified; M79.7 Fibromyalgia; K21.9 Gastro-esophageal reflux disease without esophagitis; E78.5 Hyperlipidemia, unspecified; I10 Essential (primary) hypertension; F41.9 Anxiety disorder, unspecified; F17.200 Nicotine dependence, unspecified, uncomplicated; R25.1 Tremor, unspecified; M19.90 Unspecified osteoarthritis, unspecified site; G89.4 Chronic pain syndrome; M25.512 Pain in left shoulder; Z87.820 Personal history of traumatic brain injury; Z79.899 Other long term (current) drug therapy; Z88.1 Allergy status to other antibiotic agents; Z87.01 Personal history of pneumonia (recurrent); Z82.49 Family history of ischemic heart disease and other diseases of the circulatory system
CPT/HCPCS: 99285; 96375 ×2; 96361 ×2; 36415; 94760; 93005; 85379; 80061 ×2; 80053 ×2; 85652 ×2; 82550 ×2; 82553 ×2; 83735 ×2; 84100; 84484 ×2; 85025 ×2; 85610; 85730; 86140; 83090; 71020; 93880; 70450; 70551; G0378 ×2; S4990; J1170; J2930; J2270; J7512; 96365

== ENCOUNTER → 2017-11-10 | Outpatient (CLI) | payer BC | END | disposition home or self-care (01) | LOC: LABWHC1 11:13 | DX: R51 Headache (principal); R93.0 Abnormal findings on diagnostic imaging of skull and head, not elsewhere classified; G31.84 Mild cognitive impairment of uncertain or unknown etiology | CPT/HCPCS: 36415; 82175; 82375; 82600 ==

== ENCOUNTER → 2018-02-13 | Outpatient (CLI) | payer BC ==
[2018-02-13 08:32] LABS: Basophils # (A) 0.1 k/uL (0-0.2); Basophils % (A) 0 %; Eosinophils # (A) 0.1 k/uL (0-0.7); Eosinophils % (A) 1 %; HCT 46.7 % (39.0-53.0); HGB 15.6 gm/dL (13.0-17.5); Lymphocytes # (A) 2.5 k/uL (1.0-4.8); Lymphocytes % (A) 21 %; MCH 32.4 pg (25.0-35.0); MCHC 33.3 g/dL (31.0-37.0); MCV 97.3 fL (80.0-100.0); Mean Platelet Volume 7.4; Monocytes # (A) 0.8 k/uL (0-1.0); Monocytes % (A) 7 %; Neutrophils # (A) 8.1 k/uL (1.3-7.7); Neutrophils % (A) 69 %; Platelet Count 279 k/uL (150-450); RBC 4.81 m/uL (4.30-5.90); WBC 11.8 k/uL (3.8-10.6)
[2018-02-13 09:39] LABS: ALT 44 U/L (21-72); AST 28 U/L (17-59); Alkaline Phosphatase 88 U/L (38-126); Anion Gap 16 mmol/L; Blood Urea Nitrogen 16 mg/dL (9-20); Calcium 10.6 mg/dL (8.4-10.2); Carbon Dioxide 28 mmol/L (22-30); Chloride 99 mmol/L (98-107); Glucose 128 mg/dL (74-99); Potassium 4.6 mmol/L (3.5-5.1); Sodium 143 mmol/L (137-145); Total Bilirubin 0.6 mg/dL (0.2-1.3)
[2018-02-13 09:49] LABS: T4, Free (Free Thyroxine) 0.88 ng/dL (0.78-2.19)
[2018-02-13 16:42] LABS: HIV AB P24 Non-Reactive (Non-Reactive); HIV P24 AG Non-Reactive (Non-Reactive)
[2018-02-13 17:41] LABS: Hepatitis A Antibody IgM Non-Reactive (Non-Reactive); Hepatitis B Core IgM Non-Reactive (Non-Reactive)
[2018-02-13 17:52] LABS: Folate, Serum 22.3 ng/mL; Vitamin D 25 Hydroxy 14.4 ng/mL (30.0-100.0)
[2018-02-15 06:57] LABS: Vitamin B1 52 ug/L (38-122)
== END | disposition home or self-care (01) ==
LOC: LABWHC1 07:50
PROVIDERS: ATTEND Psychiatry & Neurology Pain Medicine
DX: R42 Dizziness and giddiness (principal); R90.82 White matter disease, unspecified; R20.8 Other disturbances of skin sensation
CPT/HCPCS: 36415; 80053; 80074; 82306; 82607; 82746; 83036; 84207; 84425; 84439; 84443; 84481; 84591; 85025; 87390

== ENCOUNTER 2018-05-05 09:47 | Observation (INO) | payer BC ==
[2018-05-05] MEDS ORDERED: NITROGLYCERIN OINT 1 INCH/GM PACKET TOPICAL STA (10:30)
[2018-05-05] MEDS ORDERED: ASPIRIN 81 MG PO STA (10:30)
--- NOTE | 2018-05-05 10:39 | ED ---
General Adult HPI - General Chief complaint: Chest Pain Stated complaint: chest pain Time Seen by Provider: 05/05/18 09:50 Source: patient, RN notes reviewed Mode of arrival: wheelchair Limitations: no limitations - History of Present Illness Initial comments: This is an 57-year-old male who presents emergency department with past medical history significant for hypertension and Lyme disease. Patient states she's been on doxycycline for about a month through a PICC line because of his Lyme disease. Patient states over the weekend he was given an antibiotic for bronchitis. Does not know what the antibiotic is. Patient states 2 days ago he started having chest pain and left-sided headache and he states that both continue and have gotten progressively worse since they began. Patient also states he is somewhat short of breath. Patient states he thought he might had a fever a few days ago but he didn't take his temperature. Patient denies any lightheadedness or dizziness. Patient denies any numbness or new weakness. Patient states he has a little abdominal discomfort lower abdomen. Patient denies any dysuria hematuria urinary frequency. - Related Data Home Medications Medication Instructions Recorded Confirmed ALPRAZolam [Xanax] 1 mg PO BID PRN 03/13/17 05/05/18 Albuterol Sulfate [Proair Hfa] 1 - 2 puff INHALATION RT-Q6H PRN 03/13/17 HYDROcodone/APAP 10-325MG [[place] 1 tab PO Q4H PRN 09/24/17 05/05/18 10-325] Losartan Potassium [Cozaar] 150 mg PO DAILY 09/24/17 05/05/18 Omeprazole [PriLOSEC] 20 mg PO DAILY 09/24/17 05/05/18 Ondansetron [Zofran ODT] 8 mg PO Q8HR PRN 09/24/17 05/05/18 amLODIPine [Norvasc] 5 mg PO DAILY 09/24/17 05/05/18 Amoxic-Pot Clav 500-125 mg 1 tab PO Q12HR 05/05/18 05/05/18 [Augmentin 500-125 mg] Aspirin EC [Ecotrin Low Dose] 81 mg PO DAILY 05/05/18 05/05/18 Budesonide/Formoterol Fumarate 2 puff INHALATION RT-BID 05/05/18 05/05/18 [Symbicort 160-4.5 Mcg Inhaler] Butalb/APAP/Caff 50-325-40Mg 1 tab PO Q4H PRN 05/05/18 05/05/18 [Fioricet 50-325-40] Cholestyramine (with Sugar) 4 gm PO BID 05/05/18 05/05/18 [Cholestyramine Packet] Cyanocobalamin [Vitamin B-12 1,000 mcg SQ QMONTH 05/05/18 05/05/18 Injection] Doxycycline 100ml 100 ml IV BID 05/05/18 05/05/18 EPINEPHrine (Auto Inject) [Epipen] 0.3 mg IM ONCE PRN 05/05/18 05/05/18 Fluticasone Nasal [place] [Flonase 2 spr EA NOSTRIL DAILY 05/05/18 05/05/18 Nasal [place]] Ipratropium-Albuterol Nebulize 3 ml INHALATION RT-QID 05/05/18 05/05/18 [Duoneb 0.5 mg-3 mg/3 ml Soln] Nitroglycerin Sl Tabs [Nitrostat] 0.4 mg SUBLINGUAL Q5M PRN 05/05/18 05/05/18 Sertraline [Zoloft] 25 mg PO DAILY 05/05/18 05/05/18 Previous Rx's Medication Instructions Recorded Gabapentin [Neurontin] 300 mg PO TID #90 cap 09/26/17 Allergies Allergy/AdvReac Type Severity Reaction Status Date / Time atorvastatin [From Lipitor] Allergy Dyspnea Verified 05/05/18 12:09 Influenza Virus Vaccines Allergy Rash/Hives Verified 05/05/18 12:09 metronidazole [From Flagyl] Allergy Unknown Verified 05/05/18 12:09 Review of Systems ROS Statement: Those systems with pertinent positive or pertinent negative responses have been documented in the HPI. ROS Other: All systems not noted in ROS Statement are negative. Past Medical History Past Medical History: Asthma, COPD, Fibromyalgia, GERD/Reflux, Hyperlipidemia, Hypertension, Osteoarthritis (OA), Pneumonia Additional Past Medical History / Comment(s): lyme disease History of Any Multi-Drug Resistant Organisms: None Reported Past Surgical History: Back Surgery, Cholecystectomy Additional Past Surgical History / Comment(s): PLATE TO NECK, LEFT SHOULDER, ELBOW AND WRISTS, HANDS, STOMACH SURGERY Past Anesthesia/Blood Transfusion Reactions: No Reported Reaction Past Psychological History: Anxiety Smoking Status: Current every day smoker Past Alcohol Use History: Occasional Past Drug Use History: None Reported - Past Family History Mother Family Medical History: Osteoarthritis (OA) Father Family Medical History: Coronary Artery Disease (CAD), Diabetes Mellitus, Hypertension Son(s) Family Medical History: No Reported History General Exam - General Exam Comments Initial Comments: GENERAL: Patient is well-developed and well-nourished. Patient is nontoxic and well- hydrated and is in mild distress. ENT: Neck is soft and supple. No significant lymphadenopathy is noted. Oropharynx is clear. Moist mucous membranes. Neck has full range of motion without eliciting any pain. EYES: The sclera were anicteric and conjunctiva were pink and moist. Extraocular movements were intact and pupils were equal round and reactive to light. Eyelids were unremarkable. PULMONARY: Unlabored respirations. Good breath sounds bilaterally. No audible rales rhonchi or wheezing was noted. CARDIOVASCULAR: There is a regular rate and rhythm without any murmurs gallops or rubs. ABDOMEN: Minimal lower abdominal tenderness. No palpable organomegaly was noted. There is no palpable pulsatile mass. SKIN: Skin is clear with no lesions or rashes and otherwise unremarkable. NEUROLOGIC: Patient is alert and oriented x3. Cranial nerves II through XII are grossly intact. Motor and sensory are also intact. Normal speech, volume and content. Symmetrical smile. MUSCULOSKELETAL: Normal extremities with adequate strength and full range of motion. No lower extremity swelling or edema. No calf tenderness. LYMPHATICS: No significant lymphadenopathy is noted PSYCHIATRIC: Normal psychiatric evaluation. Normal interpersonal interactions appears functionally intact in deals appropriately with others. No signs of depression. No signs of anxiety. Limitations: no limitations Course Vital Signs 05/05/18 05/05/18 05/05/18 09:48 10:27 11:52 Temperature 97.8 F Pulse Rate 83 73 Pulse Rate [ 107 H [employer] ] Respiratory 18 18 Rate Blood Pressure 162/102 105/73 O2 Sat by Pulse 97 98 Oximetry Medical Decision Making - Medical Decision Making Patient states he's had a long-standing history of chest pain but this chest pain seemed a little more intense than normal. EKG shows normal sinus rhythm at 79 bpm MI interval is 144 QRS is 90 QT interval 372 QTC is 426 patient's EKG shows no ST segment elevation or depression or T wave abnormalities are noted. Chest x-ray shows no acute abnormality I spoke with the [facility] physicians and they agreed to admit the patient. I wrote admitting orders. - Lab Data Result diagrams: 05/05/18 10:15 05/05/18 10:15 Lab Results 05/05/18 05/05/18 05/05/18 Range/Units 10:15 10:15 10:15 WBC 11.5 H (3.8-10.6) k/uL RBC 4.93 (4.30-5.90) m/uL Hgb 15.9 (13.0-17.5) gm/dL Hct 48.0 (39.0-53.0) % MCV 97.5 (80.0-100.0) fL MCH 32.2 (25.0-35.0) pg MCHC 33.0 (31.0-37.0) g/dL RDW 12.2 (11.5-15.5) % Plt Count 297 (150-450) k/uL Neutrophils % 64 % Lymphocytes % 23 % Monocytes % 7 % Eosinophils % 4 % Basophils % 1 % Neutrophils # 7.3 (1.3-7.7) k/uL Lymphocytes # 2.7 (1.0-4.8) k/uL Monocytes # 0.8 (0-1.0) k/uL Eosinophils # 0.4 (0-0.7) k/uL Basophils # 0.1 (0-0.2) k/uL ESR 2 (0-15) mm/hr PT (9.0-12.0) sec INR (<1.2) APTT (22.0-30.0) sec Sodium 137 (137-145) mmol/L Potassium 3.8 (3.5-5.1) mmol/L Chloride 102 (98-107) mmol/L Carbon Dioxide 19 L (22-30) mmol/L Anion Gap 16 mmol/L BUN 10 (9-20) mg/dL Creatinine 0.60 L (0.66-1.25) mg/dL Est GFR (CKD-EPI)AfAm >90 (>60 ml/min/1.73 sqM) Est GFR (CKD-EPI)NonAf >90 (>60 ml/min/1.73 sqM) Glucose 198 H (74-99) mg/dL Calcium 9.7 (8.4-10.2) mg/dL Magnesium 2.0 (1.6-2.3) mg/dL Total Bilirubin 0.4 (0.2-1.3) mg/dL AST 29 (17-59) U/L ALT 32 (21-72) U/L Alkaline Phosphatase 79 (38-126) U/L Total Creatine Kinase 30 L (55-170) U/L CK-MB (CK-2) 0.8 (0.0-2.4) ng/mL CK-MB (CK-2) Rel Index 2.7 Troponin I <0.012 (0.000-0.034) ng/mL C-Reactive Protein <5.0 (<10.0) mg/L Total Protein 6.7 (6.3-8.2) g/dL Albumin 4.3 (3.5-5.0) g/dL Urine Color Urine Appearance (Clear) Urine pH (5.0-8.0) Ur Specific [place] (1.001-1.035) Urine Protein (Negative) Urine Glucose (UA) (Negative) Urine Ketones (Negative) Urine Blood (Negative) Urine Nitrite (Negative) Urine Bilirubin (Negative) Urine Urobilinogen (<2.0) mg/dL Ur Leukocyte Esterase (Negative) 05/05/18 05/05/18 Range/Units 10:15 10:15 WBC (3.8-10.6) k/uL RBC (4.30-5.90) m/uL Hgb (13.0-17.5) gm/dL Hct (39.0-53.0) % MCV (80.0-100.0) fL MCH (25.0-35.0) pg MCHC (31.0-37.0) g/dL RDW (11.5-15.5) % Plt Count (150-450) k/uL Neutrophils % % Lymphocytes % % Monocytes % % Eosinophils % % Basophils % % Neutrophils # (1.3-7.7) k/uL Lymphocytes # (1.0-4.8) k/uL Monocytes # (0-1.0) k/uL Eosinophils # (0-0.7) k/uL Basophils # (0-0.2) k/uL ESR (0-15) mm/hr PT 10.1 (9.0-12.0) sec INR 1.0 (<1.2) APTT 23.8 (22.0-30.0) sec Sodium (137-145) mmol/L Potassium (3.5-5.1) mmol/L Chloride (98-107) mmol/L Carbon Dioxide (22-30) mmol/L Anion Gap mmol/L BUN (9-20) mg/dL Creatinine (0.66-1.25) mg/dL Est GFR (CKD-EPI)AfAm (>60 ml/min/1.73 sqM) Est GFR (CKD-EPI)NonAf (>60 ml/min/1.73 sqM) Glucose (74-99) mg/dL Calcium (8.4-10.2) mg/dL Magnesium (1.6-2.3) mg/dL Total Bilirubin (0.2-1.3) mg/dL AST (17-59) U/L ALT (21-72) U/L Alkaline Phosphatase (38-126) U/L Total Creatine Kinase (55-170) U/L CK-MB (CK-2) (0.0-2.4) ng/mL CK-MB (CK-2) Rel Index Troponin I (0.000-0.034) ng/mL C-Reactive Protein (<10.0) mg/L Total Protein (6.3-8.2) g/dL Albumin (3.5-5.0) g/dL Urine Color Colorless Urine Appearance Clear (Clear) Urine pH 6.0 (5.0-8.0) Ur Specific [place] 1.003 (1.001-1.035) Urine Protein Negative (Negative) Urine Glucose (UA) Negative (Negative) Urine Ketones Negative (Negative) Urine Blood Negative (Negative) Urine Nitrite Negative (Negative) Urine Bilirubin Negative (Negative) Urine Urobilinogen <2.0 (<2.0) mg/dL Ur Leukocyte Esterase Negative (Negative) Disposition Clinical Impression: Chest pain Disposition: ADMITTED IP TO THIS [facility] Referrals: Nonstaff,Physician [REFERRING] - 1-2 days Time of Disposition: 12:32
[2018-05-05 11:06] LABS: Basophils # (A) 0.1 k/uL (0-0.2); Basophils % (A) 1 %; Eosinophils # (A) 0.4 k/uL (0-0.7); Eosinophils % (A) 4 %; HGB 15.9 gm/dL (13.0-17.5); Lymphocytes # (A) 2.7 k/uL (1.0-4.8); Lymphocytes % (A) 23 %; MCH 32.2 pg (25.0-35.0); MCV 97.5 fL (80.0-100.0); Mean Platelet Volume 7.6; Monocytes # (A) 0.8 k/uL (0-1.0); Monocytes % (A) 7 %; Neutrophils # (A) 7.3 k/uL (1.3-7.7); Neutrophils % (A) 64 %; Platelet Count 297 k/uL (150-450); RBC 4.93 m/uL (4.30-5.90); RDW 12.2 % (11.5-15.5); WBC 11.5 k/uL (3.8-10.6)
[2018-05-05 11:08] LABS: Appearance,Urine Clear (Clear); Bilirubin,Urine Negative (Negative); Blood,Urine Negative (Negative); Color,Urine Colorless; Glucose,Urine (UA) Negative (Negative); Ketones,Urine Negative (Negative); Leukocyte Esterase,Urine Negative (Negative); Nitrite,Urine Negative (Negative); Protein,Urine Negative (Negative); Specific Gravity,Urine 1.003 (1.001-1.035); Urobilinogen,Urine <2.0 mg/dL (<2.0)
[2018-05-05 11:17] LABS: ALT 32 U/L (21-72); AST 29 U/L (17-59); Albumin 4.3 g/dL (3.5-5.0); Alkaline Phosphatase 79 U/L (38-126); Anion Gap 16 mmol/L; Blood Urea Nitrogen 10 mg/dL (9-20); C Reactive Protein <5.0 mg/L (<10.0); Calcium 9.7 mg/dL (8.4-10.2); Carbon Dioxide 19 mmol/L (22-30); Chloride 102 mmol/L (98-107); Glucose 198 mg/dL (74-99); Potassium 3.8 mmol/L (3.5-5.1); Sodium 137 mmol/L (137-145); Total Bilirubin 0.4 mg/dL (0.2-1.3); Total Protein 6.7 g/dL (6.3-8.2)
--- NOTE | 2018-05-05 11:20 | CT ---
EXAMINATION TYPE: CT brain wo con DATE OF EXAM: 05/05/2018 COMPARISON: Previous dated 09/25/2017 HISTORY: Left sided caodaism pain without injury. history of lyme disease CT DLP: 1098.8 mGycm Automated exposure control for dose reduction was used. Helical imaging through the brain. FINDINGS: White matter demyelination changes are noted. There is no hemorrhage or hydrocephalus. Cerebral vascu lar calcifications are present. Calvarium is intact. Paranasal sinuses and mastoid air cells as visua lized are normal. Orbits show symmetric appearance. IMPRESSION: WHITE MATTER DEMYELINATION IS CHRONIC. NO ACUTE ABNORMALITIES EVIDENT
--- NOTE | 2018-05-05 11:23 | XR ---
EXAMINATION TYPE: XR chest 2V DATE OF EXAM: 05/05/2018 COMPARISON: Prior chest 09/25/2017 HISTORY: Chest pain and shortness of breath TECHNIQUE: Frontal and lateral views of the chest are obtained. FINDINGS: There is no focal air space opacity, pleural effusion, or pneumothorax seen. The cardiac silhouette size is within normal limits. Prominent lung volumes suggest underlying COPD. Right-sided PICC line is present with the distal tip in the superior vena cava. There are overlying cardiac lead s. Postop changes noted to the cervical spine. The osseous structures are intact. IMPRESSION: No acute cardiopulmonary process.
[2018-05-05 11:26] LABS: Creatine Kinase 30 U/L (55-170)
[2018-05-05 11:29] LABS: Partial Thromboplastin Time 23.8 sec (22.0-30.0); Prothrombin Time 10.1 sec (9.0-12.0)
[2018-05-05 11:39] LABS: Creatine Kinase MB 0.8 ng/mL (0.0-2.4); Troponin I <0.012 ng/mL (0.000-0.034)
[2018-05-05 11:52] LABS: Erythrocyte Sedimentation Rate 2 mm/hr (0-15)
[2018-05-05] MEDS ORDERED: KETOROLAC 60 MG/2 ML VIAL IVP STA (12:01)
[2018-05-05] MEDS ORDERED: ACETAMINOPHEN TAB 325 MG TAB PO PRN (13:49)
[2018-05-05] MEDS ORDERED: IBUPROFEN 400 MG TAB PO PRN (13:49)
[2018-05-05] MEDS ORDERED: ONDANSETRON ODT 8 MG TAB.RAPDIS PO PRN (13:57)
[2018-05-05] MEDS ORDERED: BUTALB/APAP/CAFF 50-325-40MG TAB PO PRN (13:57)
[2018-05-05] MEDS ORDERED: EPINEPHrine 1 MG/ML 1 ML AMP IM PRN (13:57)
[2018-05-05] MEDS ORDERED: ALPRAZolam 1 MG TAB PO PRN (13:57)
[2018-05-05] MEDS ORDERED: NITROGLYCERIN SL TABS 0.4 MG TAB SUBLINGUAL PRN (13:57)
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
[2018-05-05 15:13] VITALS: BMI 25.2
[2018-05-05] MEDS: MORPHINE SULFATE 2 MG/ML SYRINGE IV PRN ×2 (15:20→20:30)
[2018-05-05] MEDS: GABAPENTIN 300 MG CAP PO SCH ×2 (16:03→20:30)
[2018-05-05] MEDS: HYDROcodone/APAP 10-325MG 1 EACH TAB PO PRN ×2 (16:16→22:53)
[2018-05-05] MEDS: IPRATROPIUM-ALBUTEROL 3 ML NEB INHALATION SCH ×2 (17:03→20:46)
[2018-05-05] MEDS: NICOTINE 14MG/24HR PATCH TRANSDERM SCH (18:08)
[2018-05-05] MEDS: CHOLESTYRAMINE (WITH SUGAR) 4 GM PACKET PO SCH (20:29)
[2018-05-05] MEDS: AMOXIC-POT CLAV 500-125 MG 1 EACH TAB PO SCH (20:32)
[2018-05-05] MEDS: SYMBICORT 160-4.5 MCG INHALER INHALATION SCH (20:46)
[2018-05-05] MEDS ORDERED: DOXYCYCLINE IV SCH (21:00)
[2018-05-06] MEDS: MORPHINE SULFATE 2 MG/ML SYRINGE IV PRN ×2 (03:04→07:33)
[2018-05-06 03:28] VITALS: RESP 18
[2018-05-06] MEDS: IPRATROPIUM-ALBUTEROL 3 ML NEB INHALATION SCH ×2 (07:16→12:09)
[2018-05-06] MEDS: SYMBICORT 160-4.5 MCG INHALER INHALATION SCH (07:16)
[2018-05-06] MEDS ORDERED: PANTOPRAZOLE 40 MG TABLET PO SCH (07:30)
[2018-05-06] MEDS: NICOTINE 14MG/24HR PATCH TRANSDERM SCH (07:33)
[2018-05-06] MEDS: GABAPENTIN 300 MG CAP PO SCH (07:35)
[2018-05-06] MEDS: AMOXIC-POT CLAV 500-125 MG 1 EACH TAB PO SCH (07:35)
[2018-05-06 08:03] LABS: Basophils # (A) 0.1 k/uL (0-0.2); Basophils % (A) 1 %; Eosinophils # (A) 0.4 k/uL (0-0.7); Eosinophils % (A) 4 %; HCT 43.5 % (39.0-53.0); HGB 14.5 gm/dL (13.0-17.5); Lymphocytes # (A) 2.4 k/uL (1.0-4.8); Lymphocytes % (A) 26 %; MCH 32.4 pg (25.0-35.0); MCHC 33.4 g/dL (31.0-37.0); MCV 97.2 fL (80.0-100.0); Mean Platelet Volume 6.8; Monocytes # (A) 0.7 k/uL (0-1.0); Monocytes % (A) 7 %; Neutrophils # (A) 5.9 k/uL (1.3-7.7); Neutrophils % (A) 61 %; Platelet Count 272 k/uL (150-450); RBC 4.48 m/uL (4.30-5.90); RDW 12.1 % (11.5-15.5); WBC 9.6 k/uL (3.8-10.6)
[2018-05-06 08:12] LABS: ALT 37 U/L (21-72); AST 21 U/L (17-59); Albumin 3.8 g/dL (3.5-5.0); Alkaline Phosphatase 72 U/L (38-126); Anion Gap 11 mmol/L; Blood Urea Nitrogen 13 mg/dL (9-20); Calcium 9.3 mg/dL (8.4-10.2); Carbon Dioxide 25 mmol/L (22-30); Chloride 103 mmol/L (98-107); Glucose 107 mg/dL (74-99); Magnesium 2.2 mg/dL (1.6-2.3); Phosphorus 4.3 mg/dL (2.5-4.5); Potassium 4.6 mmol/L (3.5-5.1); Sodium 139 mmol/L (137-145); Total Bilirubin 0.4 mg/dL (0.2-1.3)
[2018-05-06] MEDS ORDERED: amLODIPine 5 MG TAB PO SCH (09:00)
[2018-05-06] MEDS ORDERED: SERTRALINE 25 MG TAB PO SCH (09:00)
[2018-05-06] MEDS ORDERED: ASPIRIN 81 MG PO SCH (09:00)
[2018-05-06] MEDS ORDERED: FLUTICASONE 50MCG/SPRAY NASAL 16GM EA NOSTRIL SCH (09:00)
[2018-05-06] MEDS ORDERED: LOSARTAN 50 MG TAB PO SCH (09:00)
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
[2018-05-06] MEDS: CHOLESTYRAMINE (WITH SUGAR) 4 GM PACKET PO SCH (10:50)
[2018-05-06] MEDS: HYDROcodone/APAP 10-325MG 1 EACH TAB PO PRN (10:53)
[2018-05-06 11:37] VITALS: BP 114/77; TEMP 97.4
[2018-05-06 12:32] VITALS: PULSE 76
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
[2018-05-07] MEDS ORDERED: ISOSORBIDE MONONITRATE ER 30 MG TAB.ER.24H PO SCH (09:00)
== END 2018-05-06 15:40 | disposition home or self-care (01) ==
LOC: EC 09:47 → 3OBS 13:49
PROVIDERS: ADMIT Internal Medicine; ATTEND Internal Medicine
DX: R07.89 Other chest pain (principal); R51 Headache; H53.8 Other visual disturbances; H91.93 Unspecified hearing loss, bilateral; H93.13 Tinnitus, bilateral; K21.9 Gastro-esophageal reflux disease without esophagitis; A69.20 Lyme disease, unspecified; Z95.828 Presence of other vascular implants and grafts; K57.90 Diverticulosis of intestine, part unspecified, without perforation or abscess without bleeding; J44.9 Chronic obstructive pulmonary disease, unspecified; I10 Essential (primary) hypertension; M79.7 Fibromyalgia; E78.5 Hyperlipidemia, unspecified; I25.10 Atherosclerotic heart disease of native coronary artery without angina pectoris; M19.90 Unspecified osteoarthritis, unspecified site; G89.29 Other chronic pain; M54.9 Dorsalgia, unspecified; F41.9 Anxiety disorder, unspecified; F17.200 Nicotine dependence, unspecified, uncomplicated; Z79.2 Long term (current) use of antibiotics; Z79.82 Long term (current) use of aspirin; Z79.51 Long term (current) use of inhaled steroids; Z79.899 Other long term (current) drug therapy; Z88.3 Allergy status to other anti-infective agents; Z90.49 Acquired absence of other specified parts of digestive tract; Z88.7 Allergy status to serum and vaccine; Z88.8 Allergy status to other drugs, medicaments and biological substances; Z86.69 Personal history of other diseases of the nervous system and sense organs; Z87.820 Personal history of traumatic brain injury; Z87.01 Personal history of pneumonia (recurrent); Z82.49 Family history of ischemic heart disease and other diseases of the circulatory system; Z83.3 Family history of diabetes mellitus; Z82.61 Family history of arthritis
CPT/HCPCS: 99285 ×2; 96374 ×2; 96375; 96376 ×2; 36415; 94640 ×3; 93005; 80053 ×2; 85652; 82550; 82553; 83735 ×2; 84100; 84484; 85025 ×2; 85610; 85730; 86140; 81003; 71046; 70450; G0378 ×2; S4990 ×2; J1642 ×2; J1885; J2270 ×2

== ENCOUNTER → 2018-06-11 | Outpatient (CLI) | payer BC | END | disposition home or self-care (01) | LOC: LABWHC1 08:57 | PROVIDERS: ATTEND Internal Medicine Infectious Disease | DX: A69.20 Lyme disease, unspecified (principal); Z79.899 Other long term (current) drug therapy | CPT/HCPCS: 36415; 80171 ==

== ENCOUNTER → 2018-08-01 | Outpatient (CLI) | payer BC ==
--- NOTE | 2018-08-01 14:57 | XR ---
Chest x-ray with bilateral ribs HISTORY: Chest pain and swelling Frontal view of the chest and 4 views of the left ribs and 4 views of the right ribs are submitted. Right-sided PICC line is present with the distal tip overlying the region of the confluence of the le ft and right innominate veins. Postop change noted to the cervical spine. No evident pneumothorax or pleural effusion. Cardiac mediastinal silhouette, pulmonary vascularity and mayte within normal limits . No evident displaced rib fracture, bone mineralization is normal. Surgical clips present in the rig ht upper quadrant. The aorta is dense. IMPRESSION: No abnormality evident. Bone scan may be of increased sensitivity as indicated.
== END | disposition home or self-care (01) ==
LOC: RADXRMAIN 12:51
PROVIDERS: ATTEND Internal Medicine Infectious Disease
DX: R59.9 Enlarged lymph nodes, unspecified (principal)
CPT/HCPCS: 71111

== ENCOUNTER → 2018-08-03 | Outpatient (CLI) | payer BC ==
[2018-08-03 18:37] LABS: Folate, Serum 21.1 ng/mL
[2018-08-07 06:10] LABS: Vitamin B1 59 ug/L (38-122)
== END ==
LOC: LABWHC1 12:27
PROVIDERS: ATTEND Internal Medicine Infectious Disease
DX: E56.9 Vitamin deficiency, unspecified (principal)
CPT/HCPCS: 36415; 82607; 82746; 84207; 84425; 84591

== ENCOUNTER → 2018-08-09 | Outpatient (CLI) | payer BC ==
--- NOTE | 2018-08-09 10:22 | MM ---
Reason for exam: clinical finding. Indicated problem(s): palpable abnormality in the left breast. Physical Findings: Nurse Summary: 1cm nodule in the left breast at 12 o'clock and 2 o'clock (nurse kp). MG 3D Diag Mammo W/Cad LT CC and MLO view(s) were taken of the left breast. The breast tissue is almost entirely fat. There is no discrete abnormality. These results were verbally communicated with the patient and result sheet given to the patient on 08/09/18. ASSESSMENT: Incomplete: need additional imaging evaluation, BI-RAD 0 RECOMMENDATION: Ultrasound of the left breast. (palpable abnormality x 2)
--- NOTE | 2018-08-09 10:23 | USB ---
Reason for exam: additional evaluation requested from abnormal screening. US Breast Limited LT Left limited breast ultrasound including focal area of concern, retroareolar and axilla demonstrates a 0.4 x 0.3 x 0.1cm lesion too small to characterize at 1 o'clock. These results were verbally communicated with the patient and result sheet given to the patient on 08/09/18. ASSESSMENT: Probably benign, BI-RAD 3 RECOMMENDATION: Ultrasound of the left breast in 6 months. Manage on a clinical basis with regard to palpable abnormaity x 2.
== END | disposition home or self-care (01) ==
LOC: RADMAMWWP 07:58
PROVIDERS: ATTEND Internal Medicine Infectious Disease
DX: N63.20 Unspecified lump in the left breast, unspecified quadrant (principal); R92.8 Other abnormal and inconclusive findings on diagnostic imaging of breast
CPT/HCPCS: 77061; 77065

== ENCOUNTER → 2018-08-21 | Outpatient (CLI) | payer BC ==
--- NOTE | 2018-08-21 15:32 | MR ---
EXAMINATION TYPE: MR brain wo con DATE OF EXAM: 08/21/2018 3:05 PM COMPARISON: 09/25/2017 HISTORY: Memory loss, Lymes disease, multiple brain lesions Multiplanar and multispin-echo imaging of the brain was performed . The ventricles, basal cisterns and sulci overlying the cerebral convexities are within normal limits. There is no evidence for midline shift or mass effect. Acute intracranial hemorrhage or extra-axial collection is not evident. Stable number and size of deep white matter T2 lesions noted. Differential diagnostic possibilities i nclude Lyme's disease as well as MS, vasculitis and sequela of chronic migraine headaches among other possibilities. No acute edema is identified. The paranasal sinuses and mastoid air cells are well-aerated. IMPRESSION: Stable number and size of deep white matter T2 lesions noted.
== END ==
LOC: RADMRIMAIN 14:29
PROVIDERS: ATTEND Internal Medicine Infectious Disease
DX: R90.89 Other abnormal findings on diagnostic imaging of central nervous system (principal)
CPT/HCPCS: 70551

== ENCOUNTER → 2018-09-06 | Outpatient (CLI) | payer BC | LOC: LABWHC1 07:55 | PROVIDERS: ATTEND Internal Medicine Infectious Disease | DX: A69.20 Lyme disease, unspecified (principal) | CPT/HCPCS: 36415; 82150; 82533; 83690 ==

== ENCOUNTER → 2018-09-06 | Outpatient (CLI) | payer BC | END | disposition home or self-care (01) | LOC: LABWHC1 15:18 | PROVIDERS: ATTEND Internal Medicine Infectious Disease | DX: A69.20 Lyme disease, unspecified (principal) | CPT/HCPCS: 36415; 82533 ==

== ENCOUNTER 2018-10-23 22:49 | Observation (INO) | payer BC ==
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
[2018-10-23] MEDS ORDERED: SODIUM CHLORIDE 0.9% 1,000 ML IV STA (23:29)
[2018-10-23] MEDS ORDERED: NITROGLYCERIN SL TABS 0.4 MG TAB SUBLINGUAL STA (23:29)
[2018-10-23] MEDS ORDERED: ASPIRIN 81 MG PO STA (23:29)
[2018-10-24 00:10] LABS: Basophils # (A) 0.1 k/uL (0-0.2); Basophils % (A) 1 %; Eosinophils # (A) 0.4 k/uL (0-0.7); Eosinophils % (A) 5 %; HCT 44.3 % (39.0-53.0); HGB 14.9 gm/dL (13.0-17.5); Lymphocytes # (A) 2.2 k/uL (1.0-4.8); Lymphocytes % (A) 28 %; MCH 32.2 pg (25.0-35.0); MCHC 33.6 g/dL (31.0-37.0); Mean Platelet Volume 7.1; Monocytes # (A) 0.5 k/uL (0-1.0); Monocytes % (A) 7 %; Neutrophils # (A) 4.5 k/uL (1.3-7.7); Neutrophils % (A) 57 %; Platelet Count 244 k/uL (150-450); RBC 4.61 m/uL (4.30-5.90); WBC 7.9 k/uL (3.8-10.6)
[2018-10-24 00:18] LABS: ALT 45 U/L (21-72); AST 28 U/L (17-59); Albumin 4.2 g/dL (3.5-5.0); Alkaline Phosphatase 85 U/L (38-126); Amylase 51 U/L (30-110); Anion Gap 8 mmol/L; Blood Urea Nitrogen 9 mg/dL (9-20); Calcium 9.5 mg/dL (8.4-10.2); Carbon Dioxide 29 mmol/L (22-30); Chloride 102 mmol/L (98-107); Glucose 130 mg/dL (74-99); INR 0.9 (<1.2); Lipase 136 U/L (23-300); Magnesium 2.1 mg/dL (1.6-2.3); Partial Thromboplastin Time 24.6 sec (22.0-30.0); Prothrombin Time 9.9 sec (9.0-12.0); Sodium 139 mmol/L (137-145); Total Bilirubin 0.4 mg/dL (0.2-1.3); Total Protein 6.9 g/dL (6.3-8.2)
[2018-10-24 00:22] LABS: Creatine Kinase 52 U/L (55-170)
[2018-10-24 00:35] LABS: Creatine Kinase MB 0.9 ng/mL (0.0-2.4); Troponin I <0.012 ng/mL (0.000-0.034)
--- NOTE | 2018-10-24 00:36 | XR ---
EXAMINATION TYPE: XR chest 2V DATE OF EXAM: 10/24/2018 COMPARISON: 05/05/2018 HISTORY: Stomach pain. Left side chest pain TECHNIQUE: Frontal and lateral views of the chest are obtained. FINDINGS: Heart and mediastinum are within normal limits. Lungs are clear. Costophrenic angles are c lear. There is cervical spine fusion surgery. There are chest leads. Thoracic aorta is atheromatous. Bony thorax is intact. IMPRESSION: No active cardiopulmonary disease. Normal heart. No change compared to old exam.
--- NOTE | 2018-10-24 00:53 | CT ---
EXAMINATION TYPE: CT abdomen pelvis w con DATE OF EXAM: 10/24/2018 COMPARISON: 03/14/2017 HISTORY: chest and abdominal pain. CT DLP: 709.9 mGycm Automated exposure control for dose reduction was used. TECHNIQUE: Helical acquisition of images was performed from the lung bases through the pelvis. CONTRAST: Performed without Oral Contrast and with IV Contrast, patient injected with 100mL mL of Isovue 300. FINDINGS: Lung bases are clear. Heart size is normal. There is no pericardial effusion. There is no pleural eff usion. Stomach is intact. There are clips from cholecystectomy. Liver spleen pancreas appear normal. Bile ducts are not dilated. There is no adrenal mass. Kidneys show normal contrast opacification. There is no hydronephrosis. The re are small renal cortical cysts that measure up to 1.5 cm. There is no retroperitoneal adenopathy. Abdominal aorta is atheromatous. Bladder distends smoothly. There is no inguinal hernia. There is no free fluid in the pelvis. There i s no mesenteric edema or adenopathy. Lumbar spine is intact. I see no bony destructive process. The a ppendix appears normal. Prostate is enlarged and measures 5.7 cm. IMPRESSION: NEGATIVE CT SCAN OF THE ABDOMEN AND PELVIS. MILD ATHEROSCLEROTIC VASCULAR DISEASE.
[2018-10-24] MEDS ORDERED: NITROGLYCERIN SL TABS 0.4 MG TAB SUBLINGUAL PRN ×2 (04:09→15:55)
[2018-10-24] MEDS ORDERED: NICOTINE 14MG/24HR PATCH TRANSDERM STA (04:12)
[2018-10-24] MEDS: MORPHINE SULFATE 4 MG/ML SYRINGE IV PRN ×4 (04:16→12:46)
[2018-10-24 04:45] VITALS: RESP 18
[2018-10-24 04:54] VITALS: BMI 25.5
[2018-10-24 06:36] LABS: Creatine Kinase 49 U/L (55-170)
[2018-10-24 06:49] LABS: Creatine Kinase MB 0.8 ng/mL (0.0-2.4); Troponin I <0.012 ng/mL (0.000-0.034)
[2018-10-24] MEDS ORDERED: PRAVASTATIN SODIUM 20 MG TAB PO SCH (10:30)
[2018-10-24 10:56] LABS: Cholesterol 211 mg/dL (<200); HDL Cholesterol 53 mg/dL (40-60); LDL Cholesterol,Calculated 90 mg/dL (0-99); Triglycerides 341 mg/dL (<150)
[2018-10-24 11:06] LABS: Creatine Kinase MB 0.8 ng/mL (0.0-2.4); Troponin I 0.013 ng/mL (0.000-0.034)
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
[2018-10-24] MEDS ORDERED: PANTOPRAZOLE 40 MG/10 ML VIAL IVP SCH (13:15)
[2018-10-24] MEDS ORDERED: LIDOCAINE 1% INJ 10MG/ML (20 ML MDV) ONE (13:44)
[2018-10-24] MEDS ORDERED: PROPOFOL 10 MG/ML 20 ML VIAL IV ONE (13:44)
[2018-10-24 14:21] VITALS: TEMP 98.1
--- NOTE | 2018-10-24 14:33 | P.PCN ---
Date of Procedure: 10/24/18 Description of Procedure: BRIEF HISTORY: 57-year-old gentleman with a history of cholecystectomy, nicotine cigarette dependency, Lyme's disease, GERD, Vinh fundoplication with reversal a few years ago, colonic diverticulosis, COPD, asthma, hyperlipidemia, fibromyalgia, anxiety, depression. Patient presents with acute on chronic abdominal pain chest pain mostly in the upper abdomen describes it as burning sharp. Denies alcohol consumption, hematemesis hematochezia melena fever chills or weight loss. No diarrhea or constipation. Home medications include Prilosec 20 mg daily. History of EGD colonoscopy 18 months ago at [facility] upper endoscopy "really irritated raw" no ulcers lower endoscopy is colonic diverticulosis with multiple polyps removed. CT abdomen and pelvis unremarkable for acute processes. PROCEDURE PERFORMED: Esophagogastroduodenoscopy with biopsy. PREOPERATIVE DIAGNOSIS: Abdominal pain, GERD. ESTIMATED BLOOD LOSS: Minimal. IV sedation per anesthesia. PROCEDURE: After informed consent was obtained, the patient was brought into the endoscopy unit. IV sedation was administered by Anesthesia under continuous monitoring. Initially the Olympus GIF-160 video endoscope was inserted into the mouth. Esophagus intubated without any difficulty. It was gradually advanced into the stomach and duodenum and carefully examined. The bulb and the second part of the duodenum were significant for mild scattered erythema suggestive of duodenitis which was biopsied. The scope at this time was withdrawn to the stomach, adequately insufflated with air, and upon careful examination, mucosa of the antrum, body, cardia and the fundus appeared grossly normal with mild scattered erythema in the antrum which was biopsied. The scope was then withdrawn into the esophagus. The GE junction was located at 39 cm from the incisors. The esophagus appeared normal. There were no erosions or ulcerations seen and the patient tolerated the procedure well. IMPRESSION: 1. Mild Gastritis, biopsied. 2. Mild Duodenitis, biopsied. RECOMMENDATIONS: The findings of this examination were discussed with the patient. Okay for diet. Recommend increasing PPI therapy to twice daily. Continue to monitor clinically. Okay for discharge from gastroenterology if otherwise stable. Await pathology.
[2018-10-24 14:58] VITALS: BP 133/84; PULSE 60
[2018-10-24] MEDS ORDERED: ALBUTEROL NEBULIZED 2.5 MG/3 ML INHALATION PRN (15:55)
[2018-10-24] MEDS ORDERED: ALPRAZolam 1 MG TAB PO PRN (15:55)
[2018-10-24] MEDS ORDERED: BUTALB/APAP/CAFF 50-325-40MG TAB PO PRN (15:55)
[2018-10-24] MEDS ORDERED: LIDOCAINE HCL TOPICAL PRN (15:55)
[2018-10-24] MEDS ORDERED: HYDROcodone/APAP 10-325MG 1 EACH TAB PO PRN (15:55)
[2018-10-24] MEDS ORDERED: ONDANSETRON ODT 8 MG TAB.RAPDIS PO PRN (15:55)
[2018-10-24] MEDS ORDERED: NON-FORMULARY DRUG (Epinephrine (Auto Inject) 0.3 MG) IM PRN (15:55)
[2018-10-24] MEDS ORDERED: CYANOCOBALAMIN 1,000 MCG/ML 1 ML VIAL SQ SCH (16:00)
[2018-10-24] MEDS ORDERED: IPRATROPIUM-ALBUTEROL 3 ML NEB INHALATION SCH (16:00)
--- NOTE | 2018-10-24 16:50 | HP ---
HISTORY AND PHYSICAL ADMITTING CHIEF COMPLAINT: Chest pain. HISTORY OF PRESENT ILLNESS: This is a apparently the first admission for this 57-year-old male. He came in with complaint of anterior chest pain which he describes as being somewhat sharp. He also states that he has had epigastric pain with some abdominal swelling and shortness of breath. He is a difficult historian. REVIEW OF SYSTEMS: He has had no vomiting, fever, chills, diarrhea, melena, cough hemoptysis, sputum production, hypertension, murmurs, rheumatic fever, orthopnea, PND, etc. Past medical history is otherwise unremarkable except he does have a history of Lyme disease, fibromyalgia and diverticulitis. His past medical history is otherwise insignificant. HE IS ALLERGIC TO FLAGYL. He states he has had a cardiac workup in the past including a cardiac cath in 2017, which was normal. Surgically he has had a cholecystectomy, back surgery, procedure on elbow, shoulder procedures and operation on his neck. SOCIAL HISTORY: He does drink a small amount of alcohol and he does smoke. AT HOME MEDICATIONS: He is on albuterol, Xanax 1 mg once a day, Symbicort, Fioricet, cholestyramine, B12 injection, fluticasone nasal spray, Vicodin 10, updrafts and DuoNeb, nitroglycerin tabs, omeprazole, Zofran, amlodipine, aspirin, and losartan. PHYSICAL EXAM: Blood pressure 126/84 with a pulse 58, respirations 18, temperature 95.7. GENERAL: He appeared to be slender, well developed, well nourished, in no acute distress. Skin color is normal. He had multiple tattoos. Head, ears, eyes, nose, mouth, and throat were normal. Chest is clear. Cardiac exam is normal. Chest wall is nontender. Abdomen is soft, nontender without visceromegaly or masses. Bowel sounds present. Extremities normal. Neurological is intact. IMPRESSION: 1. Atypical chest pain. 2. Upper abdominal pain. 3. History of Lyme disease. 4. History of diverticulitis. PLAN: 1. Bed rest. 2. IV fluids. 3. Serial EKGs and enzymes. 4. Cardiology consult. MMODL / IJN: [id number] /
[2018-10-24] MEDS ORDERED: SYMBICORT 160-4.5 MCG INHALER INHALATION SCH (20:00)
[2018-10-24] MEDS ORDERED: NON-FORMULARY DRUG (Omeprazole 20 MG) PO SCH (21:00)
[2018-10-24] MEDS ORDERED: CHOLESTYRAMINE (WITH SUGAR) 4 GM PACKET PO SCH (21:00)
[2018-10-25] MEDS ORDERED: ASPIRIN 81 MG PO SCH (09:00)
[2018-10-25] MEDS ORDERED: MULTIVITAMIN THERAPEUTIC PO SCH (09:00)
[2018-10-25] MEDS ORDERED: ASPIRIN 325 MG TAB PO SCH (09:00)
[2018-10-25] MEDS ORDERED: amLODIPine 10 MG TAB PO SCH (09:00)
[2018-10-25] MEDS ORDERED: NON-FORMULARY DRUG (Aspirin Ec 81 MG) PO SCH (09:00)
[2018-10-25] MEDS ORDERED: FLUTICASONE 50MCG/SPRAY NASAL 16GM EA NOSTRIL SCH (09:00)
[2018-10-25] MEDS ORDERED: LOSARTAN 50 MG TAB PO SCH (09:00)
== END 2018-10-24 16:15 | disposition home or self-care (01) ==
LOC: EC 22:49 → 1SOBS 10-24 04:09
PROVIDERS: ADMIT Family Medicine; ATTEND Family Medicine
DX: R07.89 Other chest pain (principal); R10.13 Epigastric pain; K29.80 Duodenitis without bleeding; K29.50 Unspecified chronic gastritis without bleeding; Z98.890 Other specified postprocedural states; K57.90 Diverticulosis of intestine, part unspecified, without perforation or abscess without bleeding; M79.7 Fibromyalgia; K21.9 Gastro-esophageal reflux disease without esophagitis; J44.9 Chronic obstructive pulmonary disease, unspecified; I10 Essential (primary) hypertension; E78.5 Hyperlipidemia, unspecified; M19.90 Unspecified osteoarthritis, unspecified site; H91.90 Unspecified hearing loss, unspecified ear; G43.909 Migraine, unspecified, not intractable, without status migrainosus; G93.9 Disorder of brain, unspecified; Z90.49 Acquired absence of other specified parts of digestive tract; F41.9 Anxiety disorder, unspecified; F32.9 Major depressive disorder, single episode, unspecified; I70.0 Atherosclerosis of aorta; F17.210 Nicotine dependence, cigarettes, uncomplicated; Z79.51 Long term (current) use of inhaled steroids; Z79.82 Long term (current) use of aspirin; Z79.899 Other long term (current) drug therapy; Z88.1 Allergy status to other antibiotic agents; Z88.7 Allergy status to serum and vaccine; Z88.8 Allergy status to other drugs, medicaments and biological substances; Z86.19 Personal history of other infectious and parasitic diseases; Z86.010 Personal history of colon polyps; Z87.01 Personal history of pneumonia (recurrent); Z83.3 Family history of diabetes mellitus; Z82.49 Family history of ischemic heart disease and other diseases of the circulatory system; Z82.61 Family history of arthritis
CPT/HCPCS: 36415; 43239; 71046; 74177; 80053; 80061; 82150; 82550; 82553; 83690; 83735; 84484; 85025; 85379; 85610; 85730; 88305; 93005; 96361; 96374; 96376; 99285

== ENCOUNTER → 2019-02-11 | Outpatient (CLI) | payer BC ==
[2019-02-11 16:43] LABS: Cardiolipin Ab IgG Interp NEGATIVE (NEGATIVE); Cardiolipin Ab IgM Interp NEGATIVE (NEGATIVE); Cardiolipin IgA Antibody 0.6 U/mL; Cardiolipin IgM Antibody 1.8 U/mL
== END | disposition home or self-care (01) ==
LOC: LABWHC1 07:59
PROVIDERS: ATTEND Internal Medicine Infectious Disease
DX: I63.9 Cerebral infarction, unspecified (principal); E78.00 Pure hypercholesterolemia, unspecified
CPT/HCPCS: 36415; 80061; 86147

== ENCOUNTER → 2019-02-13 | Outpatient (CLI) | payer BC ==
--- NOTE | 2019-02-13 10:42 | XR ---
EXAMINATION TYPE: XR chest 2V DATE OF EXAM: 02/13/2019 COMPARISON: Prior chest x-ray 10/24/2018 HISTORY: Tobacco user, asthma, Lyme disease TECHNIQUE: Frontal and lateral views of the chest are obtained. FINDINGS: There are prominent lung volumes. Postop changes are noted to the cervical spine as on prio r exam. The aorta is dense. There is no focal air space opacity, pleural effusion, or pneumothorax se en. The cardiac silhouette size is within normal limits. The osseous structures are intact. IMPRESSION: No acute cardiopulmonary process.
== END | disposition home or self-care (01) ==
LOC: RADXRMAIN 09:54
PROVIDERS: ATTEND Internal Medicine Pulmonary Disease
DX: J45.30 Mild persistent asthma, uncomplicated (principal); Z72.0 Tobacco use
CPT/HCPCS: 71046

== ENCOUNTER → 2019-02-21 | Outpatient (CLI) | payer BC ==
[2019-02-22 06:46] LABS: Herpes simplex IgG II Ab 0.21 (< or = 0.90)
[2019-02-22 09:55] LABS: V. zoster Source Blood - Plasma; Varicella zoster Virus by PCR Not detected (Not detected)
[2019-02-22 14:42] LABS: C-ANCA <1:20 Titer (<1:20); P-ANCA <1:20 Titer (<1:20)
== END | disposition home or self-care (01) ==
LOC: LABWHC1 09:19
PROVIDERS: ATTEND Internal Medicine Infectious Disease
DX: R25.1 Tremor, unspecified (principal); A69.20 Lyme disease, unspecified; L60.8 Other nail disorders
CPT/HCPCS: 36415; 82607; 84478; 86038; 86255; 86332; 86638; 86694; 86695; 86696; 87798

== ENCOUNTER → 2019-03-18 | Outpatient (CLI) | payer BC ==
[2019-03-21 11:58] LABS: Bartonella henselae Ab, IgG <1:64; Bartonella henselae Ab, IgM < 1:16
== END | disposition home or self-care (01) ==
LOC: LABWHC1 12:22
PROVIDERS: ATTEND Internal Medicine Infectious Disease
DX: D89.9 Disorder involving the immune mechanism, unspecified (principal); E53.8 Deficiency of other specified B group vitamins
CPT/HCPCS: 36415; 86611

== ENCOUNTER → 2019-06-24 | Outpatient (CLI) | payer BC, MEDICARE ==
[~2019-06-24] MED LIST: REGADENOSON 0.4 MG/5 ML SYRINGE IV ONE
--- NOTE | 2019-06-24 10:21 | EST ---
EXERCISE STRESS DATE OF SERVICE: 06/24/2019 AGE: 58 SEX: Male HT: 70" WT: 176 pounds PROTOCOL: Lexiscan Cardiolite STAGE: DURATION OF EXERCISE: HEART RATE REST: 59 BLOOD PRESSURE REST: 129/71 MAXIMUM HEART RATE ACHIEVED: 83 MAXIMUM BLOOD PRESSURE: 116/69 85% MPHR: 100% MPHR: METS: INDICATIONS: Chest pain. CLINICAL INFORMATION: Baseline EKG shows sinus rhythm, normal axis, normal intervals. Patient was given intravenous Lexiscan as per protocol. Did not have chest pain or diagnostic ST-segment depression. CONCLUSIONS: 1. Negative stress test by EKG criteria. 2. Cardiolite portion of the stress test will be reported separately. MMODL / IJN: [id number] /
--- NOTE | 2019-06-24 10:31 | ECHOF ---
Referral Reason:I20.9 angina MEASUREMENTS -------- HEIGHT: 180.3 cm WEIGHT: 79.8 kg BP: 130/88 RVIDd: 3.7 cm (< 3.3) IVSd: 1.5 cm (0.6 - 1.1) LVIDd: 3.5 cm (3.9 - 5.3) LVPWd: 1.5 cm (0.6 - 1.1) IVSs: 1.5 cm LVIDs: 2.9 cm LVPWs: 1.7 cm LAESV Index (A-L): 18.40 ml/m Ao Diam: 3.8 cm (2.0 - 3.7) AV Cusp: 2.2 cm (1.5 - 2.6) LA Diam: 3.8 cm (2.7 - 3.8) EPSS: 0.9 cm MV E Jordan: 0.89 m/s MV DecT: 163 ms MV A Jordan: 0.58 m/s MV E/A Ratio: 1.53 AR PHT: 567 ms RAP: 5.00 mmHg RVSP: 34.05 mmHg MV EF SLOPE: 89.04 mm/s (70 - 150) MV EXCURSION: 1.35 cm (> 18.000) FINDINGS -------- Sinus rhythm. This was a technically adequate study. The left ventricular size is normal. There is moderate concentric left ventricular hypertrophy. O verall left ventricular systolic function is normal with, an EF between 55 - 60 %. The diastolic fi lling pattern is normal for the age of the patient. Interatrial and interventricular septum intact. The aortic valve is trileaflet and appears structurally normal. There is mild aortic regurgitation. There is no evidence of aortic stenosis. The mitral valve is normal. Mild mitral annular calcification present. No mitral regurgitation. Mild tricuspid regurgitation present. The right ventricular systolic pressure, as measured by Doppl er, is 34.05mmHg. Borderline PHTN The pulmonic valve is normal. The aortic root size is normal. The inferior vena cava was not well visualized. There is no pericardial effusion. CONCLUSIONS -------- 1. Sinus rhythm. 2. This was a technically adequate study. 3. The left ventricular size is normal. 4. There is moderate concentric left ventricular hypertrophy. 5. Overall left ventricular systolic function is normal with, an EF between 55 - 60 %. 6. The diastolic filling pattern is normal for the age of the patient. 7. Interatrial and interventricular septum intact. 8. The aortic valve is trileaflet and appears structurally normal. 9. There is mild aortic regurgitation. 10. There is no evidence of aortic stenosis. 11. The mitral valve is normal. 12. Mild mitral annular calcification present. 13. No mitral regurgitation. 14. Mild tricuspid regurgitation present. 15. The right ventricular systolic pressure, as measured by Doppler, is 34.05mmHg. 16. Borderline PHTN 17. The pulmonic valve is normal. 18. The aortic root size is normal. 19. The inferior vena cava was not well visualized. 20. There is no pericardial effusion. MONITOR WORKER: Herminia Wilkerson RDCS
--- NOTE | 2019-06-24 12:17 | NM ---
EXAMINATION TYPE: NM stress lexiscan cardiolite DATE OF EXAM: 06/24/2019 COMPARISON: NONE HISTORY: Angina, I 20.9 TECHNIQUE: After the intravenous administration of 10.2 mCi Tc 99m Sestamibi - Cardiolite resting SP ECT images acquired 45 minutes post injection. The patient received 0.4mg Lexiscan, 26.7 mCi Tc 99m Sestamibi - Stress images obtained [address] injection FINDINGS: Review of stress and rest SPECT images demonstrates mild decreased radiopharmaceutical uptake in the cardiac apex on stress as compared to rest images. Gated analysis shows normal wall motion with an e stimated left ventricular ejection fraction of 74 %. IMPRESSION: Pharmacologically induced left ventricular myocardial ischemia Consider echocardiographic correlation for elevated ejection fraction. Report relayed to the referring clinician's office at the time of in terpretation at exam.
== END | disposition home or self-care (01) ==
LOC: RADNMMAIN 08:00
PROVIDERS: ATTEND Internal Medicine Interventional Cardiology
DX: I25.9 Chronic ischemic heart disease, unspecified (principal)
CPT/HCPCS: 93017; 93306; 78452; A9500; J2785

== ENCOUNTER 2019-08-05 07:42 | Emergency (ER) | payer MEDICARE, BC ==
[2019-08-05 07:48] VITALS: RESP 18
[2019-08-05] MEDS ORDERED: SODIUM CHLORIDE 0.9% 1,000 ML IV STA (08:01)
[2019-08-05] MEDS ORDERED: methylPREDNISolone SOD SUCCI 125 MG/2 ML VIAL IV STA (08:01)
[2019-08-05] MEDS ORDERED: IPRATROPIUM-ALBUTEROL 3 ML NEB INHALATION STA ×2 (08:01→10:42)
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
[2019-08-05] MEDS ORDERED: KETOROLAC 30 MG/ML 1 ML VIAL IVP STA (09:24)
--- NOTE | 2019-08-05 09:24 | XR ---
EXAMINATION TYPE: XR chest 2V DATE OF EXAM: 08/05/2019 COMPARISON: 02/13/2019 TECHNIQUE: PA and lateral views submitted. HISTORY: Shortness of breath FINDINGS: The lungs are clear and there is no pneumothorax, pleural effusion, or focal pneumonia. Postsurgical change overlying the cervical spine. Atherosclerotic change aorta. No overt failure. IMPRESSION: 1. No acute process.
[2019-08-05 09:48] LABS: ALT 27 U/L (21-72); AST 25 U/L (17-59); African American GFR (CKD) >90 (>60 ml/min/1.73 sqM); Albumin 4.3 g/dL (3.5-5.0); Alkaline Phosphatase 76 U/L (38-126); Anion Gap 9 mmol/L; Blood Urea Nitrogen 11 mg/dL (9-20); Calcium 9.5 mg/dL (8.4-10.2); Carbon Dioxide 26 mmol/L (22-30); Chloride 105 mmol/L (98-107); Creatine Kinase 73 U/L (55-170); Glucose 122 mg/dL (74-99); Magnesium 2.1 mg/dL (1.6-2.3); Potassium 4.2 mmol/L (3.5-5.1); Sodium 140 mmol/L (137-145); Total Bilirubin 0.7 mg/dL (0.2-1.3); Total Protein 6.8 g/dL (6.3-8.2)
[2019-08-05 09:49] LABS: Basophils # (A) 0.1 k/uL (0-0.2); Basophils % (A) 1 %; Eosinophils # (A) 0.1 k/uL (0-0.7); Eosinophils % (A) 1 %; HCT 43.3 % (39.0-53.0); HGB 15.4 gm/dL (13.0-17.5); Lymphocytes # (A) 0.8 k/uL (1.0-4.8); Lymphocytes % (A) 7 %; MCH 33.2 pg (25.0-35.0); MCHC 35.5 g/dL (31.0-37.0); MCV 93.4 fL (80.0-100.0); Mean Platelet Volume 6.3; Monocytes # (A) 0.6 k/uL (0-1.0); Monocytes % (A) 5 %; Neutrophils # (A) 10.2 k/uL (1.3-7.7); Neutrophils % (A) 86 %; Platelet Count 291 k/uL (150-450); RBC 4.64 m/uL (4.30-5.90); RDW 12.1 % (11.5-15.5)
[2019-08-05 09:55] LABS: INR 0.9 (<1.2); Partial Thromboplastin Time 24.6 sec (22.0-30.0)
[2019-08-05 11:59] VITALS: BP 130/87; PULSE 78; TEMP 98.8
== END 2019-08-05 12:08 | disposition home or self-care (01) ==
LOC: EC 07:42
DX: J44.1 Chronic obstructive pulmonary disease with (acute) exacerbation (principal); J44.0 Chronic obstructive pulmonary disease with (acute) lower respiratory infection; J20.9 Acute bronchitis, unspecified; J06.9 Acute upper respiratory infection, unspecified; R11.2 Nausea with vomiting, unspecified; K21.9 Gastro-esophageal reflux disease without esophagitis; I10 Essential (primary) hypertension; M19.90 Unspecified osteoarthritis, unspecified site; F17.200 Nicotine dependence, unspecified, uncomplicated; Z87.01 Personal history of pneumonia (recurrent); Z87.19 Personal history of other diseases of the digestive system; Z90.49 Acquired absence of other specified parts of digestive tract; Z98.890 Other specified postprocedural states; Z79.51 Long term (current) use of inhaled steroids; Z79.82 Long term (current) use of aspirin; Z79.891 Long term (current) use of opiate analgesic; Z79.899 Other long term (current) drug therapy; Z88.1 Allergy status to other antibiotic agents; Z88.7 Allergy status to serum and vaccine; Z88.8 Allergy status to other drugs, medicaments and biological substances
CPT/HCPCS: 36415; 71046; 80053; 82550; 83605; 83735; 83880; 84484; 85025; 85610; 85730; 87040; 87502; 93005; 94640; 96361; 96374; 96375; 99285

== ENCOUNTER → 2019-09-18 | Outpatient (CLI) | payer MEDICARE, BC ==
[2019-09-18 18:27] LABS: Chol/HDL Ratio 3.96; LDL Cholesterol,Calculated 111.2 mg/dL (0.0-131.0); VLDL Calculation 42.8 mg/dL (5.00-40.00)
== END | disposition home or self-care (01) ==
LOC: LABWHC1 11:57
PROVIDERS: ATTEND Internal Medicine Infectious Disease
DX: E78.00 Pure hypercholesterolemia, unspecified (principal)
CPT/HCPCS: 36415; 80061

== ENCOUNTER → 2019-10-08 | Outpatient (CLI) | payer MEDICARE, BC ==
--- NOTE | 2019-10-08 10:41 | XR ---
EXAMINATION TYPE: XR cervical spine comp DATE OF EXAM: 10/08/2019 COMPARISON: NONE HISTORY: Pain TECHNIQUE: Four views are submitted. FINDINGS: The odontoid is intact. There are no compression deformities. The prevertebral soft tissue structur es are within normal limits. Calcification the soft tissue the neck is likely related atheroscleroti c change of the carotid arteries. Postsurgical changes seen at levels C5-C7. Multilevel facet arthrop athy. Degenerative disc disease C3-4 and C4-C5. Foraminal encroachment C4-5 and C5-C6 bilaterally. IMPRESSION: 1. Postsurgical change with multilevel degenerative disc disease and facet arthropathy..
== END | disposition home or self-care (01) ==
LOC: RADXRMAIN 09:40
PROVIDERS: ATTEND Internal Medicine Infectious Disease
DX: M50.31 Other cervical disc degeneration, high cervical region (principal); M46.92 Unspecified inflammatory spondylopathy, cervical region
CPT/HCPCS: 72050

== ENCOUNTER → 2019-11-22 | Outpatient (CLI) | payer MEDICARE, BC ==
--- NOTE | 2019-11-22 14:04 | US ---
EXAMINATION TYPE: US carotid duplex BILAT DATE OF EXAM: 11/22/2019 COMPARISON: NONE CLINICAL HISTORY: I65.29 Carotid Artery Plaque. Patient has melanoma and bone pain. MD heard bruit on Physical exam. EXAM MEASUREMENTS: RIGHT: Peak Systolic Velocity (PSV) cm/sec ----- Right CCA: 89.2 ----- Right ICA: 88.8 ----- Right ECA: 95.5 ICA/CCA ratio: 1.0 RIGHT: End Diastole cm/sec ----- Right CCA: 31.1 ----- Right ICA: 42.5 ----- Right ECA: 18.4 LEFT: Peak Systolic Velocity (PSV) cm/sec ----- Left CCA: 70.0 ----- Left ICA: 78.9 ----- Left ECA: 75.6 ICA/CCA ratio: 1.1 LEFT: End Diastole cm/sec ----- Left CCA: 23.8 ----- Left ICA: 37.0 ----- Left ECA: 18.3 VERTEBRALS (direction of flow): Right Vertebral: Antegrade Left Vertebral: Antegrade Rhythm: Normal Small amount of soft and calcified plaque bilaterally. Tortuous left ICA IMPRESSION: 1. Small amount of plaque with no significant hemodynamic stenosis as visualized. Criteria for Assigning % of Stenosis / Diameter reduction (Estimation based on the indirect measurements of the internal carotid artery velocities (ICA PSV). 1. Normal (no stenosis)=ICA PSV < 125 cm/s: ratio < 2.0: ICA EDV<40 cm/s. 2. Less than 50% stenosis=ICA PSV < 125 cm/s: ratio < 2.0: ICA EDV<40 cm/s. 3. 50 to 69% stenosis=ICA PSV of 125 to 230 cm/s: ration 2.0 ? 4.0: ICA EDV 40-100 cm/s. 4. Greater than 70% stenosis to near occlusion= ICA PSV > 230 cm/s: ratio > 4.0: ICA EDV > 100 cm/s. 5. Near occlusion= ICA PSV velocities may be low or undetectable: variable ratio and ICA EDV. 6. Total occlusion=unable to detect flow.
--- NOTE | 2019-11-22 15:43 | NM ---
EXAMINATION TYPE: NM bone scan whole body DATE OF EXAM: 11/22/2019 COMPARISON: NONE HISTORY: Pain Delayed whole-body scanning was performed following the injection of 24.8 mCi Tc 99m MDP. Images acq uired 3 hours post injection. FINDINGS: Abnormal uptake in the mandibles compatible with periodontal disease. Abnormal uptake invol ving the cervical spine the left is likely degenerative. Abnormal uptake involving the shoulders and sternoclavicular joints is arthritic. Faint abnormal upta ke involving the mid thoracic spine likely degenerative. IMPRESSION: 1. Nonspecific uptake involving the cervical and thoracic spine most likely degenerative. 2. Abnormal uptake involving the mandible most likely on the basis of periodontal disease.
== END | disposition home or self-care (01) ==
LOC: RADNMMAIN 11:26
DX: I65.23 Occlusion and stenosis of bilateral carotid arteries (principal); M89.8X9 Other specified disorders of bone, unspecified site; Z85.820 Personal history of malignant melanoma of skin
CPT/HCPCS: 93880; 78306; A9503

== ENCOUNTER → 2019-12-09 | Outpatient (CLI) | payer MEDICARE, BC ==
--- NOTE | 2019-12-09 14:06 | BD ---
EXAMINATION TYPE: Axial Bone Density DATE OF EXAM: 12/09/2019 COMPARISON: NONE CLINICAL HISTORY: M 81.0 Height: 70 Weight: 174.3 FRAX RISK QUESTIONS: Alcohol (3 or more units per day): no Family History (Parent hip fracture): no Glucocorticoids (More than 3mos): no (Ex: prednisone, prednisolone, methylprednisolone, dexamethasone, and hydrocortisone). History of Fracture in Adulthood: yes Secondary Osteoporosis: 1. Type 1 Diabetes: no 2. Hyperthyroidism: no 3. Menopause before 45: N/A 4. Malnutrition: no 5. Chronic liver disease: no Rheumatoid Arthritis: no Current Tobacco Use: yes RISK FACTORS HISTORY OF: Surgery to Spine/Hip(right/left)/Wrist (right/left): cpine Family History of Osteoporosis: no Active: no Diet low in dairy products/other sources of calcium: yes Lost more than 2 inches in height since high school: no MEDICATIONS: heart meds, blood pressure meds, pain meds, cholesterol meds, xanax, migraine meds , lym e disease meds Additional History: EXAM MEASUREMENTS: Bone mineral densitometry was performed using the [employer] System. Bone mineral density as measured about the Lumbar spine is: ----- L1-L4(G/cm2): 1.189 T Score Values are as follows: ----- L2: 0.3 ----- L3: 0.5 ----- L4: -0.2 ----- L1-L4: 0.1 Bone mineral density : baseline Bone mineral density about the R hip (g/cm2): 0.945 Bone mineral density about the L hip (g/cm2): 0.933 T Score values are as follows: -----R Neck: -0.7 -----L Neck: -0.8 -----R Total: -0.2 -----L Total: -0.1 Bone mineral density : baseline IMPRESSION: Normal (Values between +1 and -1 indicate normal bone mass). Consider repeating this study in 5 year s or sooner if there is some new clinical indication. NOTE: T-SCORE=SD OF THE YOUNG ADULT MEAN.
== END | disposition home or self-care (01) ==
LOC: RADBDWWP 13:21
PROVIDERS: ATTEND Internal Medicine Infectious Disease
DX: M81.8 Other osteoporosis without current pathological fracture (principal)
CPT/HCPCS: 77080

== ENCOUNTER → 2020-01-03 | Outpatient (CLI) | payer MEDICARE, BC ==
--- NOTE | 2020-01-03 12:40 | XR ---
EXAMINATION TYPE: XR chest 2V DATE OF EXAM: 01/03/2020 COMPARISON: Prior chest x-ray 08/05/2019 HISTORY: Asthma, rib cage pain, tobacco user TECHNIQUE: Frontal and lateral views of the chest are obtained. FINDINGS: There is no focal air space opacity, pleural effusion, or pneumothorax seen. The cardiac silhouette size is within normal limits. The osseous structures are intact, postop noted lower cerv ical spine as on prior. Aorta is dense. Prominent lung volume may be indicative of underlying COPD. S urgical clips are present in the upper abdomen. IMPRESSION: No acute cardiopulmonary process.
== END | disposition home or self-care (01) ==
LOC: RADXRMAIN 09:52
PROVIDERS: ATTEND Internal Medicine Pulmonary Disease
DX: J45.30 Mild persistent asthma, uncomplicated (principal); Z72.0 Tobacco use
CPT/HCPCS: 71046

== ENCOUNTER 2020-04-26 19:34 | Emergency (ER) | payer MEDICARE, BC ==
[2020-04-26] MEDS ORDERED: HYDROmorphone 1 MG/ML 1 ML SYRINGE IVP STA ×2 (19:35→20:00)
[2020-04-26] MEDS ORDERED: KETAMINE 10 MG/ML 20 ML VIAL IV STA ×2 (19:38→19:42)
[2020-04-26 19:40] VITALS: TEMP 98.4
[2020-04-26] MEDS ORDERED: LORazepam 2 MG/ML INJ IV STA (19:43)
[2020-04-26] MEDS ORDERED: DIPH,PERTUS(ACELL)TETVAC-LF 0.5 ML VIAL IM ONE (19:47)
[2020-04-26] MEDS ORDERED: AMPICILLIN-SULBACTAM 3 GM in SODIUM CHLORIDE 0.9% 100 ML IVPB STA (19:49)
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
[2020-04-26 20:05] LABS: Basophils # (A) 0.1 k/uL (0-0.2); Basophils % (A) 1 %; Eosinophils # (A) 0.6 k/uL (0-0.7); Eosinophils % (A) 2 %; HCT 44.9 % (39.0-53.0); HGB 14.4 gm/dL (13.0-17.5); Lymphocytes # (A) 3.8 k/uL (1.0-4.8); Lymphocytes % (A) 16 %; MCV 96.9 fL (80.0-100.0); Mean Platelet Volume 8.9; Monocytes # (A) 0.9 k/uL (0-1.0); Monocytes % (A) 4 %; Neutrophils # (A) 17.6 k/uL (1.3-7.7); Neutrophils % (A) 76 %; Platelet Count 372 k/uL (150-450); RBC 4.64 m/uL (4.30-5.90); RDW 12.5 % (11.5-15.5); WBC 23.2 k/uL (3.8-10.6)
[2020-04-26 20:13] LABS: ALT 29 U/L (4-49); AST 39 U/L (17-59); African American GFR (CKD) >90 (>60 ml/min/1.73 sqM); Albumin 4.2 g/dL (3.5-5.0); Alcohol <10 mg/dL; Alkaline Phosphatase 69 U/L (38-126); Amylase 58 U/L (30-110); Anion Gap 16 mmol/L; Blood Urea Nitrogen 13 mg/dL (9-20); Calcium 9.7 mg/dL (8.4-10.2); Carbon Dioxide 16 mmol/L (22-30); Chloride 105 mmol/L (98-107); Glucose 195 mg/dL (74-99); Non-African American GFR(CKD) >90 (>60 ml/min/1.73 sqM); Potassium 4.5 mmol/L (3.5-5.1); Sodium 137 mmol/L (137-145); Total Bilirubin 0.3 mg/dL (0.2-1.3); Total Protein 6.6 g/dL (6.3-8.2)
[2020-04-26] MEDS ORDERED: MIDAZOLAM 1 MG/ML 5 ML VIAL IV STA (20:14)
[2020-04-26 20:15] LABS: Creatine Kinase 320 U/L (55-170)
[2020-04-26 20:23] VITALS: BP 119/79; PULSE 85; RESP 16
[2020-04-26 20:23] LABS: INR 0.9 (<1.2); Prothrombin Time 9.5 sec (9.0-12.0)
[2020-04-26 20:25] LABS: Partial Thromboplastin Time 19.9 sec (22.0-30.0)
[2020-04-26 20:28] LABS: Creatine Kinase MB 2.9 ng/mL (0.0-2.4); Troponin I <0.012 ng/mL (0.000-0.034)
== END 2020-04-26 20:33 | disposition other institution (70) ==
LOC: EC 19:34
DX: S41.112A Laceration without foreign body of left upper arm, initial encounter (principal); S41.111A Laceration without foreign body of right upper arm, initial encounter; S01.311A Laceration without foreign body of right ear, initial encounter; E78.5 Hyperlipidemia, unspecified; F41.9 Anxiety disorder, unspecified; J44.9 Chronic obstructive pulmonary disease, unspecified; I10 Essential (primary) hypertension; K21.9 Gastro-esophageal reflux disease without esophagitis; M19.90 Unspecified osteoarthritis, unspecified site; F17.200 Nicotine dependence, unspecified, uncomplicated; Z79.899 Other long term (current) drug therapy; Z79.82 Long term (current) use of aspirin; Z79.51 Long term (current) use of inhaled steroids; Z88.1 Allergy status to other antibiotic agents; Z88.7 Allergy status to serum and vaccine; Z88.8 Allergy status to other drugs, medicaments and biological substances; Z23 Encounter for immunization; W54.0XXA Bitten by dog, initial encounter
CPT/HCPCS: 99285; 96365; 96375 ×4; 96376 ×2; 90471; 36415; 93005; 86900; 86901; 80053; 82150; 82550; 82553; 83605; 83690; 84484; 85025; 85610; 85730; 86850; 90715; G0480; J2060; J2250; J1170; J0295; 80320